=== PATIENT | female | born 1980 | race African-American/Black ===

== ENCOUNTER 2020-04-18 05:26 | Inpatient (IN) | payer OTHER, SELFPAY ==
[2020-04-18] MEDS ORDERED: ADENOSINE 6 MG/ 2ML VIAL IV ONE ×2 (06:01→06:05)
[2020-04-18] MEDS ORDERED: NA CHLORIDE 0.9% 1,000 ML ONE ×2 (06:02→12:15)
[2020-04-18] MEDS ORDERED: MIDAZOLAM HCL 2 MG/2 ML INJ ONE (06:04)
[2020-04-18] MEDS ORDERED: dilTIAZem HCL 25 MG/5 ML VIAL IV ONE ×2 (06:08→06:58)
[2020-04-18 06:09] LABS: Protime INR 1.04
[2020-04-18 06:17] LABS: Absolute Lymphocytes (CBC) 3.5 K/uL (0.7-4.9); Basophils % 1.4 % (0-1.3); Hematocrit 50.7 % (36.0-45.0); MPV 10.5 fL (7.6-11.3); RBC Red Blood Cell Count 6.28 M/uL (3.86-4.86)
[2020-04-18 06:23] LABS: ALT/SGPT 34 U/L (12-78); AST/SGOT 26 U/L (15-37); Alkaline Phosphatase 82 U/L (45-117); BUN Blood Urea Nitrogen 6 mg/dL (7-18); Bicarbonate 23 mmol/L (21-32); Bilirubin Direct 0.5 mg/dL (0-0.2); Glucose Level 104 mg/dL (74-106); Magnesium 2.1 mg/dL (1.8-2.4); NT PRO-BNP 990 pg/mL (<125); Potassium 4.1 mmol/L (3.5-5.1); Protein, Total 8.1 g/dL (6.4-8.2); Sodium Level 141 mmol/L (136-145); Troponin (Emerg Dept Use Only) < 0.02 ng/mL (0.0-0.045)
[2020-04-18 06:38] LABS: White Blood Cell Scan OK (OK)
[2020-04-18 06:39] LABS: Blood Morphology Comment NOT SEEN (NOT SEEN); Platelet Estimate ADEQ; Platelets, Giant FEW
--- NOTE | 2020-04-18 07:04 | EDPHYS ---
Physician Documentation [facility] Name: Carmel Gleason Age: 39 yrs Sex: Female : 1980 Arrival Date: 04/18/2020 Time: 05:26 Bed 4 Private MD: ED Physician Favio Cabrera HPI: 04/18 06:20 This 39 yrs old Black Female presents to ER via Ambulatory with complaints of Chest tw4 Pain. 06:20 The patient or guardian reports chest pain that is located primarily in the anterior tw4 chest wall. Associated signs and symptoms: The patient has no apparent associated signs or symptoms. The chest pain is described as dull. Duration: The patient or guardian reports a single episode. Modifying factors: The symptoms are alleviated by nothing. the symptoms are aggravated by nothing. The patient has not experienced similar symptoms in the past. 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 - Social history:: Smoking status: Patient reports the use of cigarette tobacco products, smokes one-half pack cigarettes per day, Patient uses alcohol, occasionally. Patient/guardian denies using street drugs. ROS: 07:03 Constitutional: Negative for fever, chills, and weight loss, Eyes: Negative for injury, tw4 pain, redness, and discharge, Neck: Negative for injury, pain, and swelling, Respiratory: Negative for shortness of breath, cough, wheezing, and pleuritic chest pain, Abdomen/GI: Negative for abdominal pain, nausea, vomiting, diarrhea, and constipation, Back: Negative for injury and pain, MS/Extremity: Negative for injury and deformity, Skin: Negative for injury, rash, and discoloration, Neuro: Negative for headache, weakness, numbness, tingling, and seizure. 07:03 Cardiovascular: Positive for chest pain, palpitations. Exam: 07:03 Constitutional: This is a well developed, well nourished patient who is awake, alert, tw4 and in no acute distress. Head/Face: Normocephalic, atraumatic. Chest/axilla: Normal chest wall appearance and motion. Nontender with no deformity. No lesions are appreciated. Cardiovascular: Regular rate and rhythm with a normal S1 and S2. No gallops, murmurs, or rubs. Normal PMI, no JVD. No pulse deficits. Respiratory: Lungs have equal breath sounds bilaterally, clear to auscultation and percussion. No rales, rhonchi or wheezes noted. No increased work of breathing, no retractions or nasal flaring. Abdomen/GI: Soft, non-tender, with normal bowel sounds. No distension or tympany. No guarding or rebound. No evidence of tenderness throughout. Back: No spinal tenderness. No costovertebral tenderness. Full range of motion. Skin: Warm, dry with normal turgor. Normal color with no rashes, no lesions, and no evidence of cellulitis. MS/ Extremity: Pulses equal, no cyanosis. Neurovascular intact. Full, normal range of motion. Vital Signs: 05:28 BP 114 / 97; Pulse 125; Resp 19; Temp 98.2; Pulse Ox 95% ; Weight 84.37 kg; Height 5 rr5 ft. 5 in. (165.10 cm); Pain 6/10; 05:40 Pulse 185; rr5 05:50 BP 121 / 98; Pulse 224; Resp 22; Pulse Ox 98% on R/A; rr5 06:03 BP 121 / 75; Pulse 119; Resp 20; Pulse Ox 96% on R/A; mg2 06:37 BP 132 / 74; Pulse 118; Resp 18; Pulse Ox 98% on 3 lpm NC; rr5 07:11 BP 115 / 81; Pulse 117; Resp 23; Pulse Ox 100% ; bp 08:00 BP 116 / 95; Pulse 115; Resp 20; Pulse Ox 100% on 3 lpm NC; tw2 08:50 BP 127 / 92; Pulse 117; Resp 18; Pulse Ox 99% on 3 lpm NC; tw2 09:50 BP 157 / 88; Pulse 102; Resp 33; Pulse Ox 97% ; bp 05:28 Body Mass Index 30.95 (84.37 kg, 165.10 cm) rr5 MDM: 05:42 Patient medically screened. tw4 07:03 Data reviewed: vital signs, nurses notes. Data interpreted: Pulse oximetry: tw4 Interpretation:. Counseling: I had a detailed discussion with the patient and/or guardian regarding: the historical points, exam findings, and any diagnostic results supporting the discharge/admit diagnosis, lab results, radiology results. Physician consultation: Minh Cardona MD regarding admission, patient's condition, and will see patient in ED. 04/18 05:57 Order name: Basic Metabolic Panel; Complete Time: 06:27 rr5 04/18 06:28 Interpretation: Normal except: CL 108; GFR 87; BUN 6. tw4 04/18 05:57 Order name: CBC with Diff; Complete Time: 06:56 rr5 04/18 06:56 Interpretation: Normal except: HCT 50.7; HGB 17.5; RBC 6.28; DANIELE% 41.5; BASO% 1.4; MN% tw4 17.7; MNA 1.8. 04/18 05:57 Order name: LFT's; Complete Time: 06:27 rr5 04/18 06:28 Interpretation: Normal except: GLOB 4.1; BILID 0.5; BILIT 2.0; A/G 1.0. tw04/18 05:57 Order name: Magnesium; Complete Time: 06:27 rr5 04/18 06:29 Interpretation: Within normal limits: MG 2.1. 04/18 05:57 Order name: NT PRO-BNP; Complete Time: 06:27 rr5 04/18 06:28 Interpretation: Within normal limits: NT PRO-BNP 990. 04/18 05:57 Order name: PT-INR; Complete Time: 06:27 rr5 04/18 06:29 Interpretation: Within normal limits: PT 12.3. 04/18 05:57 Order name: Troponin (emerg Dept Use Only); Complete Time: 06:27 rr5 04/18 06:29 Interpretation: Within normal limits: TROPED < 0.02. 04/18 06:39 Order name: CBC Smear Scan; Complete Time: 06:54 EDMS 04/18 06:55 Interpretation: Within normal limits: WBC SCAN OK. tw4 04/18 08:00 Order name: CBC with Automated Diff EDMS 04/18 08:00 Order name: CBC with Automated Diff EDMS 04/18 08:00 Order name: Lipid Profile EDMS 04/18 08:00 Order name: Lipid Profile EDMS 04/18 08:00 Order name: Troponin I EDWA 04/18 08:00 Order name: Troponin I EDWA 04/18 05:57 Order name: XRAY Chest (1 view) rr5 04/18 05:57 Order name: EKG; Complete Time: 05:58 rr5 04/18 07:57 Order name: Chest For Pe Angio EDWA 04/18 08:00 Order name: CONS Physician Consult EDWA 04/18 08:00 Order name: Heart Healthy EDWA 04/18 08:00 Order name: Echo with Doppler EDWA 04/18 08:00 Order name: Troponin I EDWA 04/18 08:00 Order name: T4 Free EDWA 04/18 08:01 Order name: Thyroid Stimulating Hormone EDWA 04/18 08:01 Order name: Urine Drug Screen EDWA 04/18 08:07 Order name: COVID-19 bd 04/18 05:57 Order name: Cardiac monitoring; Complete Time: 05:57 rr5 04/18 05:57 Order name: EKG - Nurse/Tech; Complete Time: 05:57 rr5 04/18 05:57 Order name: IV Saline Lock; Complete Time: 05:58 rr5 04/18 05:57 Order name: Labs collected and sent; Complete Time: 05:58 rr5 04/18 05:57 Order name: O2 Per Protocol; Complete Time: 05:58 rr5 04/18 05:57 Order name: O2 Sat Monitoring; Complete Time: 05:58 rr5 EC:03 Rate is 240 beats/min. Rhythm is regular. QRS [place] is Normal. AR interval is normal. tw4 QRS interval is normal. QT interval is normal. No Q waves. No ST changes noted. Clinical impression: SVT. Interpreted by me. Reviewed by me. Administered Medications: 05:48 Drug: Adenocard 6 mg Route: IVP; Site: left antecubital; rr5 06:23 Follow up: Response: No adverse reaction mg2 05:51 Drug: Adenocard 12 mg Route: IVP; Site: left antecubital; rr5 06:24 Follow up: Response: No adverse reaction mg2 05:55 Drug: NS 0.9% 1000 ml Route: IV; Rate: 1 bolus; Site: left antecubital; rr5 06:40 Follow up: Response: No adverse reaction; IV Status: Completed infusion; IV Intake: rr5 1000ml 05:55 Drug: Cardizem 20 mg Route: IVP; Site: left antecubital; rr5 06:24 Follow up: Response: No adverse reaction; patient converted mg2 06:48 Drug: Cardizem 5 mg Route: IVP; Site: left antecubital; mg2 Disposition: 04/18/20 07:03 Hospitalization ordered by Minh Cardona for Inpatient Admission. Preliminary diagnosis are Other chest pain, Supraventricular tachycardia, Unspecified atrial flutter. - Bed requested for Telemetry/MedSurg (Inpatient). - Status is Inpatient Admission. bp - Condition is Fair. - Problem is new. - Symptoms have improved. Signatures: Dispatcher [employer] EDMS Kathy Rosales RN MYRIAM kl Ron Frausto RN RN Riky Zimmerman RN RN bp Wadley, Terrence, MD MD 4 Guevara Darby RN RN mg2 Bill Llamas RN RN rr5 Corrections: (The following items were deleted from the chart) 06:30 06:28 Normal except: HCT 50.7; HGB 17.5; RBC 6.28. 06:56 06:30 Normal except: HCT 50.7; HGB 17.5; RBC 6.28; DANIELE% 41.5. [facility] 08:27 07:03 Hospitalization Ordered by Minh Cardona MD for Inpatient Admission. Preliminary kl diagnosis is Other chest pain; Supraventricular tachycardia; Unspecified atrial flutter. Bed requested for Telemetry/MedSurg (Inpatient). Status is Inpatient Admission. Condition is Fair. Problem is new. Symptoms have improved. [facility] 10:25 08:27 04/18/2020 07:03 Hospitalization Ordered by Minh Cardona MD for Inpatient bp Admission. Preliminary diagnosis is Other chest pain; Supraventricular tachycardia; Unspecified atrial flutter. Bed requested for Telemetry/MedSurg (Inpatient). Status is Inpatient Admission. Condition is Fair. Problem is new. Symptoms have improved. kl
--- NOTE | 2020-04-18 07:04 | ER ---
Nurse's Notes [facility] Name: Carmel Gleason Age: 39 yrs Sex: Female : 1980 Arrival Date: 04/18/2020 Time: 05:26 Bed 4 Private MD: Diagnosis: Other chest pain;Supraventricular tachycardia;Unspecified atrial flutter Presentation: 04/18 05:28 Chief complaint: Patient states: I woke up around 0330H having pain at the center of my rr5 chest going to my ear. 05:28 Coronavirus screen: Client denies travel out of the [place] in the last 14 days. At this rr5 time, the client does not indicate any symptoms associated with coronavirus-19. Ebola Screen: Patient negative for fever greater than or equal to 101.5 degrees Fahrenheit, and additional compatible Ebola Virus Disease symptoms Patient denies exposure to infectious person. Patient denies travel to an Ebola-affected area in the 21 days before illness onset. Initial Sepsis Screen: Does the patient meet any 2 criteria? HR > 90 bpm. No. Patient's initial sepsis screen is negative. Does the patient have a suspected source of infection? No. Patient's initial sepsis screen is negative. Risk Assessment: Do you want to hurt yourself or someone else? Patient reports no desire to harm self or others. Onset of symptoms was April 18, 2020. 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 - Social history:: Smoking status: Patient reports the use of cigarette tobacco products, smokes one-half pack cigarettes per day, Patient uses alcohol, occasionally. Patient/guardian denies using street drugs. Screenin:30 Abuse screen: Denies threats or abuse. Denies injuries from another. Nutritional rr5 screening: No deficits noted. Tuberculosis screening: No symptoms or risk factors identified. Fall Risk IV access (20 points). Total Patton Fall Scale indicates No Risk (0-24 pts). 06:03 Abuse screen: Denies threats or abuse. Denies injuries from another. Nutritional mg2 screening: No deficits noted. Tuberculosis screening: No symptoms or risk factors identified. Fall Risk IV access (20 points). Assessment: 05:30 General: Appears in no apparent distress. uncomfortable, Behavior is calm, cooperative, rr5 appropriate for age. 05:30 Pain: Complains of pain in chest Pain radiates to left ear Pain currently is 6 out of rr5 10 on a pain scale. Quality of pain is described as sharp, Pain began gradually, Is intermittent. Neuro: Level of Consciousness is awake, alert, obeys commands, Oriented to person, place, time, situation. Cardiovascular: Reports chest pain, Capillary refill < 3 seconds Patient's skin is warm and dry. Respiratory: Airway is patent Respiratory effort is even, unlabored, Respiratory pattern is regular, symmetrical, Denies shortness of breath. GI: No signs and/or symptoms were reported involving the gastrointestinal system. : No signs and/or symptoms were reported regarding the genitourinary system. EENT: Reports pain in left ear. Derm: Skin is intact, is healthy with good turgor, Skin temperature is warm. Musculoskeletal: Capillary refill < 3 seconds. 05:50 Reassessment: HR 224 bpm, ED provider at bedside with order made and carried out. rr5 06:05 Reassessment: Patient appears in no apparent distress at this time. Patient is alert, rr5 oriented x 3, equal unlabored respirations, skin warm/dry/pink. feels anxious as verbalized by the patient. explained the plan of care and she agreed to it, decreased environmental stimuli. 06:37 Reassessment: Patient appears in no apparent distress at this time. Patient is alert, rr5 oriented x 3, equal unlabored respirations, skin warm/dry/pink. Patient states feeling better. Patient states symptoms have improved. 07:00 Reassessment: Patient appears in no apparent distress at this time. Patient and/or bp family updated on plan of care and expected duration. Pain level reassessed. Patient is alert, oriented x 3, equal unlabored respirations, skin warm/dry/pink. RECD REPORT FROM HERBIE MIGUEL. 39YO BF P/W CHEST PAIN, SINUS TACH NOTED ON MONITOR ON ARRIVAL. 08:00 Reassessment: Patient appears in no apparent distress at this time. Patient and/or tw2 family updated on plan of care and expected duration. Pain level reassessed. Patient is alert, oriented x 3, equal unlabored respirations, skin warm/dry/pink. 08:50 Reassessment: Patient appears in no apparent distress at this time. Patient and/or tw2 family updated on plan of care and expected duration. Pain level reassessed. Patient is alert, oriented x 3, equal unlabored respirations, skin warm/dry/pink. 09:20 Reassessment: ECHO AT B/S. ADMIT IN PROCESS. bp 09:53 Reassessment: ADMIT COMPLETE. REPORT TO CAL MIGUEL. bp Vital Signs: 05:28 BP 114 / 97; Pulse 125; Resp 19; Temp 98.2; Pulse Ox 95% ; Weight 84.37 kg; Height 5 rr5 ft. 5 in. (165.10 cm); Pain 6/10; 05:40 Pulse 185; rr5 05:50 BP 121 / 98; Pulse 224; Resp 22; Pulse Ox 98% on R/A; rr5 06:03 BP 121 / 75; Pulse 119; Resp 20; Pulse Ox 96% on R/A; mg2 06:37 BP 132 / 74; Pulse 118; Resp 18; Pulse Ox 98% on 3 lpm NC; rr5 07:11 BP 115 / 81; Pulse 117; Resp 23; Pulse Ox 100% ; bp 08:00 BP 116 / 95; Pulse 115; Resp 20; Pulse Ox 100% on 3 lpm NC; tw2 08:50 BP 127 / 92; Pulse 117; Resp 18; Pulse Ox 99% on 3 lpm NC; tw2 09:50 BP 157 / 88; Pulse 102; Resp 33; Pulse Ox 97% ; bp 05:28 Body Mass Index 30.95 (84.37 kg, 165.10 cm) rr5 ED Course: 05:15 Inserted saline lock: 20 gauge in left antecubital area, using aseptic technique. Blood rr5 collected. 05:15 EKG done, by ED staff, reviewed by Favio Cabrera MD. rr5 05:26 Patient arrived in ED. cl3 05:30 Patient has correct armband on for positive identification. Placed in gown. Bed in low rr5 position. Call light in reach. Side rails up X2. property assessment monitor on. Pulse ox on. NIBP on. 05:35 Arm band placed on right wrist. EKG completed in triage. Results shown to MD. rr5 05:41 Favio Cabrera MD is Attending Physician. tw4 05:45 Oxygen administration via nasal cannula \T\ 3L/min. rr5 05:57 Herbie Llamas, RN is Primary Nurse. rr5 06:00 Triage completed. rr5 06:14 XRAY Chest (1 view) In Process Unspecified. EDMS 07:03 Minh Cardona MD is Hospitalizing Provider. tw4 07:06 Primary Nurse role handed off by Herbie Llamas, RN bp 07:06 Riky Zimmerman, RN is Primary Nurse. bp 08:[address] via stretcher. sj 09:54 No provider procedures requiring assistance completed. Patient admitted, IV remains in bp place. Administered Medications: 05:48 Drug: Adenocard 6 mg Route: IVP; Site: left antecubital; rr5 06:23 Follow up: Response: No adverse reaction mg2 05:51 Drug: Adenocard 12 mg Route: IVP; Site: left antecubital; rr5 06:24 Follow up: Response: No adverse reaction mg2 05:55 Drug: NS 0.9% 1000 ml Route: IV; Rate: 1 bolus; Site: left antecubital; rr5 06:40 Follow up: Response: No adverse reaction; IV Status: Completed infusion; IV Intake: rr5 1000ml 05:55 Drug: Cardizem 20 mg Route: IVP; Site: left antecubital; rr5 06:24 Follow up: Response: No adverse reaction; patient converted mg2 06:48 Drug: Cardizem 5 mg Route: IVP; Site: left antecubital; mg2 Intake: 06:40 IV: 1000ml; Total: 1000ml. rr5 Outcome: 07:03 Decision to Hospitalize by Provider. tw4 09:55 Admitted to Med/surg accompanied by tech, family with patient, via wheelchair, with bp oxygen, Report called to ACL MIGUEL 09:55 Condition: stable 09:55 Instructed on the need for admit. 10:25 Patient left the ED. bp Signatures: Dispatcher [employer] EDIN Maude Wall Lucy Escobedo RN RN tw2 Riky Zimmerman, RN RN bp Favio Cabrera MD MD tw4 Guevara Darby RN RN mg2 Herbie Llamas RN RN rr5 Kenyetta Rosales cl3 Corrections: (The following items were deleted from the chart) 07:07 06:37 BP 132 / 74; Pulse 118bpm; Resp 18bpm; Pulse Ox 98%; rr5 rr5
[2020-04-18] MEDS ORDERED: MORPHINE 4 MG/ML SYR IV PRN (07:55)
[2020-04-18] MEDS ORDERED: ACETAMINOPHEN 500 MG TAB PO PRN (07:55)
--- NOTE | 2020-04-18 08:32 | RAD REPORT ---
EXAM DESCRIPTION: CT - Chest For Pe Angio - 04/18/2020 8:10 am CLINICAL HISTORY: Chest pain. tachyarryhthmia COMPARISON: No comparisons TECHNIQUE: CT angiogram of the pulmonary arteries was performed with MIP. All CT scans are performed using dose optimization technique as appropriate and may include automated exposure control or mA/KV adjustment according to patient size. FINDINGS: No evidence of pulmonary thromboembolism. No acute aortic finding demonstrated. Scattered areas of subsegmental atelectasis are present in both lungs. No significant pericardial or pleural fluid. No concerning bony finding. IMPRESSION: No evidence of pulmonary thromboembolism.
--- NOTE | 2020-04-18 08:43 | RAD REPORT ---
EXAM DESCRIPTION: RAD - Chest Single View - 04/18/2020 6:14 am CLINICAL HISTORY: CHEST PAIN Chest pain. COMPARISON: No comparisons FINDINGS: Portable technique limits examination quality. The lungs are grossly clear. The heart is upper limit of normal in size. No displaced fractures. IMPRESSION: No acute intrathoracic process suspected.
[2020-04-18] MEDS ORDERED: METOPROLOL TAR 50 MG TAB PO SCH (09:00)
[2020-04-18] MEDS ORDERED: ASPIRIN EC 81 MG TAB PO SCH (09:00)
[2020-04-18 10:49] VITALS: BMI 29.7
[2020-04-18] MEDS: ENOXAPARIN 40 MG/0.4 ML SQ SCH (11:22)
[2020-04-18] MEDS: METOPROLOL TARTRATE 5 MG/5 ML INJ IV SCH ×2 (11:57→12:18)
[2020-04-18] MEDS ORDERED: NA CHLORIDE 0.9% 1,000 ML IV ONE (11:58)
[2020-04-18] MEDS ORDERED: METOPROLOL TARTRATE 5 MG/5 ML INJ IV ONE (12:15)
[2020-04-18 13:04] LABS: Thyroid Stimulating Hormone 0.616 uIU/mL (0.360-3.740); Troponin I < 0.02 ng/mL (0.0-0.045)
[2020-04-18] MEDS: NA CHLORIDE 0.9% 1,000 ML IV SCH (16:20)
[2020-04-18] MEDS: METOPROLOL TAR 25 MG TAB PO SCH (17:27)
--- NOTE | 2020-04-18 19:14 | EKG ---
Test Date: 2020-04-18 Test Time: 05:56:08 Alumina Plant Supervisor: RR MEASUREMENT RESULTS: Intervals: Rate: 120 RI: QRSD: 72 QT: 312 QTc: 440 [place]: P: 258 RI: QRS: 68 T: -54 INTERPRETIVE STATEMENTS: Atrial flutter with 2:1 AV conduction RSR' or QR pattern in V1 suggests right ventricular conduction delay Marked ST abnormality, possible inferior subendocardial injury Abnormal ECG Compared to ECG 04/18/2020 05:50:57 RSR' in V1 or V2 now present ST (T wave) deviation now present Wide-QRS tachycardia no longer present Left-axis deviation no longer present Right bundle-branch block no longer present Myocardial infarct finding no longer present T-wave abnormality no longer present Possible ischemia no longer present Electronically Signed On 04-18-20 19:12:41 SLAB PULLER by Moses Cho
--- NOTE | 2020-04-18 19:14 | EKG ---
Test Date: 2020-04-18 Test Time: 05:41:33 Pretzel Cooker: RR MEASUREMENT RESULTS: Intervals: Rate: 239 RI: QRSD: 128 QT: 230 QTc: 458 [place]: P: RI: QRS: -62 T: 258 INTERPRETIVE STATEMENTS: Wide QRS tachycardia Right bundle branch block Left anterior fascicular block Bifascicular block Possible Lateral infarct, age undetermined Inferior infarct, age undetermined Abnormal ECG Compared to ECG 04/18/2020 05:37:56 Wide-QRS tachycardia now present Right bundle-branch block now present Left anterior fascicular block now present Bifascicular block now present Myocardial infarct finding now present ST (T wave) deviation no longer present Electronically Signed On 04-18-20 19:12:43 SYBASE DEVELOPER by Moses Cho
--- NOTE | 2020-04-18 19:14 | EKG ---
Test Date: 2020-04-18 Test Time: 05:37:56 Certified Caregiver: RR MEASUREMENT RESULTS: Intervals: Rate: 160 FL: 126 QRSD: 70 QT: 276 QTc: 450 [place]: P: 261 FL: 126 QRS: 69 T: -71 INTERPRETIVE STATEMENTS: Undetermined rhythm Marked ST abnormality, possible inferior subendocardial injury Abnormal ECG Compared to ECG 07/07/2008 08:20:08 ST (T wave) deviation now present Sinus rhythm no longer present Electronically Signed On 04-18-20 19:12:44 LIBRARY CIRCULATION CLERK by Moses Cho
--- NOTE | 2020-04-18 19:14 | EKG ---
Test Date: 2020-04-18 Test Time: 05:50:57 Quality Control Associate: RR MEASUREMENT RESULTS: Intervals: Rate: 241 [place]: QRSD: 132 QT: 234 QTc: 468 [place]: P: TX: QRS: -59 T: 252 INTERPRETIVE STATEMENTS: Wide QRS tachycardia Left axis deviation Right bundle branch block Inferior infarct, age undetermined T wave abnormality, consider lateral ischemia Abnormal ECG Compared to ECG 04/18/2020 05:46:10 Left-axis deviation now present T-wave abnormality now present Possible ischemia now present Left anterior fascicular block no longer present Bifascicular block no longer present Wide-QRS tachycardia still present Myocardial infarct finding still present Electronically Signed On 04-18-20 19:12:42 BASS FISHER by Moses Cho
--- NOTE | 2020-04-18 19:14 | EKG ---
Test Date: 2020-04-18 Test Time: 05:46:10 Dry Cans Back Tender: RR MEASUREMENT RESULTS: Intervals: Rate: 240 TX: QRSD: 130 QT: 232 QTc: 464 [place]: P: TX: QRS: -62 T: 251 INTERPRETIVE STATEMENTS: Wide QRS tachycardia Right bundle branch block Left anterior fascicular block Bifascicular block Possible Lateral infarct, age undetermined Inferior infarct, age undetermined Abnormal ECG Compared to ECG 04/18/2020 05:41:33 No significant changes Electronically Signed On 04-18-20 19:12:42 INFORMATION TECHNOLOGY PROJECT MANAGER by Moses Cho
[2020-04-18] MEDS: ALPRAZOLAM 0.25 MG TABLET PO PRN (20:02)
[2020-04-19 04:31] LABS: Absolute Lymphocytes (CBC) 1.9 K/uL (0.7-4.9); Basophils % 0.6 % (0-1.3); Hematocrit 43.7 % (36.0-45.0); MPV 10.2 fL (7.6-11.3); RBC Red Blood Cell Count 5.43 M/uL (3.86-4.86)
[2020-04-19] MEDS: NA CHLORIDE 0.9% 1,000 ML IV SCH ×2 (05:41→20:40)
[2020-04-19] MEDS: METOPROLOL TAR 25 MG TAB PO SCH ×2 (05:41→17:20)
[2020-04-19 05:49] LABS: Barbiturates NEGATIVE (NEGATIVE); Benzodiazepines NEGATIVE (NEGATIVE); Cocaine NEGATIVE (NEGATIVE); METHAMPHETAM NEGATIVE (NEGATIVE); Methadone NEGATIVE (NEGATIVE); Opiates NEGATIVE (NEGATIVE); Phencyclidine NEGATIVE (NEGATIVE); THC Cannibis POSITIVE (NEGATIVE)
--- NOTE | 2020-04-19 07:42 | ECHO ---
HEIGHT: 5 ft 5 in WEIGHT: 178 lb 4.8 oz DATE OF STUDY: 04/18/[address]: Minh Cardona MD 2-DIMENSIONAL: YES M.MODE: YES DOPPLER: YES COLOR FLOW: YES TDS: PORTABLE: DEFINITY: BUBBLE STUDY: DIAGNOSIS: TACHYCARDIA CARDIAC HISTORY: CATHERIZATION: NO SURGERY: NO PROSTHETIC VALVE: NO PACEMAKER: NO MEASUREMENTS (cm) DIASTOLIC (NORMALS) SYSTOLIC (NORMALS) IVSd 0.9 (0.6-1.2) LA Diam 2.9 (1.9-4.0) LVEF 62% LVIDd 3.6 (3.5-5.7) LVIDs 2.4 (2.0-3.5) %FS 33% LVPWd 1.0 (0.6-1.2) Ao Diam 2.3 (2.0-3.7) 2 DIMENSIONAL ASSESSMENT: RIGHT ATRIUM: NORMAL LEFT ATRIUM: NORMAL RIGHT VENTRICLE: NORMAL LEFT VENTRICLE: NORMAL TRICUSPID VALVE: NORMAL MITRAL VALVE: NORMAL PULMONIC VALVE: NORMAL AORTIC VALVE: NORMAL PERICARDIAL EFFUSION: NONE AORTIC ROOT: NORMAL LEFT VENTRICULAR WALL MOTION: PARADOXICAL SEPTUM DOPPLER/COLOR FLOW: MILD TRICUSPID REGURGITATION. COMMENTS: MILD TRICUSPID REGURGITATION. NORMAL RIGHT VENTRICULAR SYSTOLIC PRESSURE. PARADOXICAL SEPTUM. NO EFFUSION. NORMAL EJECTION FRACTION. TECHNOLOGIST: RODOLFO PISANO
[2020-04-19] MEDS: ASPIRIN 81 MG CHEWABLE TABLET PO SCH (09:13)
[2020-04-19] MEDS: ENOXAPARIN 40 MG/0.4 ML SQ SCH (09:13)
--- NOTE | 2020-04-19 10:04 | P.HP ---
Certification for Inpatient Patient admitted to: Inpatient With expected LOS: >2 Midnights Patient will require the following post-hospital care: None Practitioner: I am a practitioner with admitting privileges, knowledge of patient current condition, hospital course, and medical plan of care. Services: Services provided to patient in accordance with Admission requirements found in Title 42 Section 412.3 of the Code of Federal Regulations Patient History Date of Service: 04/18/20 Reason for admission: Tachyarrhythmia History of Present Illness: Patient is a 39-year-old female came to the hospital with tachyarrhythmia. She has not been feeling well for the last few days. Her symptoms gradually worsen so she came to the emergency room for further evaluation. In the ER she was found have a heart rate in the 160s. She was given intravenous Cardizem. Her heart rate came down but it was only coming down to the 110s. She has had house with her heart rate gets back up into the 160s whenever she moves around. She has never had an issue of tachyarrhythmia. She has no cardiac history. She denies drinking energy drinks. She has not had any thyroid issues. She denies any substance abuse. She will be admitted to the hospital for further evaluation. 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 moist/pink, EOMI, Sclerae nonicteric Neck: Supple, 2+ carotid pulse no bruit, No LAD, Without JVD or thyroid abnormality Respiratory: Clear to auscultation bilaterally, Normal air movement Cardiovascular: Regular rate/rhythm, Normal S1 S2, No murmurs Gastrointestinal: Normal bowel sounds, Soft and benign, Non-distended, No tenderness, No rebound, No guarding Musculoskeletal: No clubbing, No swelling, No tenderness Integumentary: No rashes Neurological: Normal gait, Normal speech, Normal strength at 5/5 x4 extr, Normal tone, Sensation intact, Cranial nerves 3-12 intact, Normal affect Lymphatics: No axilla or inguinal lymphadenopathy - Studies Laboratory Data (last 24 hrs) 04/18/20 12:26: Troponin I < 0.02 Assessment & Plan - Problems (Diagnosis) (1) Tachyarrhythmia Current Visit: Yes Status: Acute - Plan PLAN: 1. START BETA-JANICE 2. IV HYDRATION 3. CARDIOLOGY CONSULTATION 4. ECHOCARDIOGRAM 5. CHECK THYROID STUDIES 6. DRUG SCREEN 7. GI AND DVT PROPHYLAX IS Discharge Plan: Home Plan to discharge in: Greater than 2 days - Advance Directives Does patient have a Living Will: No Does patient have a Durable POA for Healthcare: No Critical Care: No Time Spent Managing PTS Care (In Minutes): 45
[2020-04-19] MEDS ORDERED: NIFEDIPINE XL 30 MG TABLET PO ONE (10:55)
--- NOTE | 2020-04-19 17:24 | CON ---
Date of Consultation: 04/19/2020 Reason For Consultation: Tachycardia and chest pain. History Of Present Illness: This is a 39-year-old female, who presents to the emergency room because of chest discomfort and heart racing. Has been having this feeling for some time and worsened at th e time of presentation. In the ER, she was found to have us to narrow complex tachycardia, heart rat e of 160, responded very well to Cardizem. Does not have any further chest pain. She has some chest pain with the episode. Past Medical History: None. Medications: Aspirin. Allergies: NO KNOWN DRUG ALLERGIES. Family History: No premature coronary artery disease or cancer. Social History: She does not smoke or drink. Does not use any drugs. Review of Systems: All systems were reviewed and they were negative except what mentioned in the HPI. Physical Examination: Vital Signs: Temperature is 97.7, heart rate 114, breathing 18, blood pressure 123/71, saturating 95 %. General: Pleasant young female, in no distress. Head and Neck: Pupils are equal, reactive to light. Intact eye movements. No JVD. No cervical lym phadenopathy. Neck: Supple. Thyroid is not enlarged. Lungs: Clear to auscultation bilaterally. No rhonchi, rales, or crackles. No accessory muscle use. Heart: Regular rate and rhythm. No extra sounds. Abdomen: Soft, nontender. Bowel sounds positive. No organomegaly. No masses or hernia. No rigidi ty or rebound. Extremities: No edema, clubbing, or cyanosis. Intact pulses. Skin: No rash noted. Neurologic: Alert, awake, oriented x3. No acute focal deficits appreciated. Investigations: Troponin x3 are negative. NT-proBNP is 990. Hemoglobin is 17.5 with white blood ce ll count of 4.6. Assessment And Plan: 1.Narrow complex tachycardia, could be supraventricular tachycardia. Her heart rate is slowed then now. We will obtain official EKG to further determine the rhythm. Agree with beta-ayde and obtai n an echocardiogram. 2.Chest pain, borderline with elevated NT-proBNP. Please obtain an exercise nuclear stress test to further evaluate. Thank you for consultation. /TANYA Voice ID: [id number] Report ID: [id number]
[2020-04-19] MEDS: ALPRAZOLAM 0.25 MG TABLET PO PRN (20:40)
[2020-04-20] MEDS: METOPROLOL TAR 25 MG TAB PO SCH (06:00)
--- NOTE | 2020-04-20 09:43 | P.DS ---
Disposition: ROUTINE DISCHARGE Discharge Condition: GOOD Reason for Admission: Tachyarrhythmia - Problems (1) Tachyarrhythmia Current Visit: Yes Status: Acute Brief History of Present Illness: Patient is a 39-year-old female came to the hospital with tachyarrhythmia. She has not been feeling well for the last few days. Her symptoms gradually worsen so she came to the emergency room for further evaluation. In the ER she was found have a heart rate in the 160s. She was given intravenous Cardizem. Her heart rate came down but it was only coming down to the 110s. She has had house with her heart rate gets back up into the 160s whenever she moves around. She has never had an issue of tachyarrhythmia. She has no cardiac history. She denies drinking energy drinks. She has not had any thyroid issues. She denies any substance abuse. She will be admitted to the hospital for further evaluation. Vital Signs/Physical Exam: Temp Pulse Resp BP Pulse Ox 98.5 F 118 H 16 121/73 98 04/20/20 09:42 04/20/20 09:42 04/20/20 09:42 04/20/20 09:42 04/20/20 09:42 Laboratory Data at Discharge: WBC 12.6 K/uL (4.3-10.9) H D 04/19/20 04:04 Hgb 15.0 g/dL (12.0-15.0) D 04/19/20 04:04 Hct 43.7 % (36.0-45.0) 04/19/20 04:04 Plt Count 237 K/uL (152-406) D 04/19/20 04:04 PT 12.3 SECONDS (9.5-12.5) 04/18/20 05:55 INR 1.04 04/18/20 05:55 Sodium 141 mmol/L (136-145) 04/18/20 05:55 Potassium 4.1 mmol/L (3.5-5.1) 04/18/20 05:55 BUN 6 mg/dL (7-18) L 04/18/20 05:55 Creatinine 0.88 mg/dL (0.55-1.3) 04/18/20 05:55 Glucose 104 mg/dL (74-106) 04/18/20 05:55 Magnesium 2.1 mg/dL (1.8-2.4) 04/18/20 05:55 Total Bilirubin 2.0 mg/dL (0.2-1.0) H 04/18/20 05:55 AST 26 U/L (15-37) 04/18/20 05:55 ALT 34 U/L (12-78) 04/18/20 05:55 Alkaline Phosphatase 82 U/L (45-117) 04/18/20 05:55 Troponin I < 0.02 ng/mL (0.0-0.045) 04/19/20 00:51 Triglycerides 104 mg/dL (<150) 04/18/20 05:55 Cholesterol 177 mg/dL (<200) 04/18/20 05:55 HDL Cholesterol 62 mg/dL (40-60) H 04/18/20 05:55 Cholesterol/HDL Ratio 2.85 04/18/20 05:55 Home Medications: Aspirin Chewable [Aspirin Chewable*] 162 mg PO DAILY 04/18/20 ALPRAZolam [Xanax*] 0.25 mg PO TID PRN #20 tab 04/20/20 Metoprolol Tartrate [Lopressor] 100 mg PO BID #60 tablet 04/20/20 New Medications: Metoprolol Tartrate [Lopressor] 100 mg PO BID #60 tablet ALPRAZolam [Xanax*] 0.25 mg PO TID PRN #20 tab PRN Reason: Anxiety Patient Discharge Instructions: OK TO DC IV AND DC HOME IF STRESS TEST IS NEGATIVE. FOLLOW-UP WITH PRIMARY CARE PROVIDER IN 1-2 WEEKS. FOLLOW-UP WITH CARDIOLOGY IN 1-2 WEEKS. RETURN TO THE ER IF SYMPTOMS WORSEN. CALL or TEXT DR. SERRANO AT [phone] IF ANY QUESTIONS REGARDING HOSPITAL STAY. PLEASE CALL THE FLOOR AT [phone] IF ANY MEDICATION OR NURSING QUESTIONS. Diet: AHA Activity: Fall precautions Followup: Moses Cho MD [ACTIVE - CAN ADMIT] - (Call to make an appointment. )
--- NOTE | 2020-04-20 09:43 | P.PN ---
Subjective Date of Service: 04/19/20 Still having Tachyarrhythmia; increased lopressor dosing; cardiology wants to do stress Review of Systems 10-point ROS is otherwise unremarkable Physical Examination - Vital Signs Temperature: 98.5 F Blood Pressure: 121/73 Pulse: 118 Respirations: 16 Pulse Ox (%): 98 - Physical Exam General: Alert, In no apparent distress, Oriented x3 HEENT: Atraumatic, PERRLA, EOMI Neck: Supple, JVD not distended Respiratory: Clear to auscultation bilaterally, Normal air movement Cardiovascular: Regular rate/rhythm, Normal S1 S2 Gastrointestinal: Normal bowel sounds, No tenderness Musculoskeletal: No tenderness Integumentary: No rashes Neurological: Normal speech, Normal tone, Normal affect Lymphatics: No axilla or inguinal lymphadenopathy - Studies Medications List Reviewed: Yes Assessment & Plan - Problems (Diagnosis) (1) Tachyarrhythmia Current Visit: Yes Status: Acute - Plan PLAN: 1. CONT BETA-JANICE 2. IV HYDRATION 3. CARDIOLOGY CONSULTATION APPRECIATED 4. ECHOCARDIOGRAM NL; STRESS TEST PENDING 5. THYROID STUDIES NORMAL 6. DRUG SCREEN NEGATIVE 7. GI AND DVT PROPHYLAXIS Discharge Plan: Home Plan to discharge in: Greater than 2 days - Advance Directives Does patient have a Living Will: No Does patient have a Durable POA for Healthcare: No
[2020-04-20] MEDS ORDERED: NIFEDIPINE XL 30 MG TABLET PO ONE (10:15)
[2020-04-20] MEDS: ENOXAPARIN 40 MG/0.4 ML SQ SCH (10:46)
[2020-04-20] MEDS: ASPIRIN 81 MG CHEWABLE TABLET PO SCH (10:46)
[2020-04-20] MEDS: NA CHLORIDE 0.9% 1,000 ML IV SCH ×2 (12:15→20:48)
[2020-04-20] MEDS: ADENOSINE 6 MG/ 2ML VIAL IV PRN ×2 (13:09→13:19)
[2020-04-20] MEDS ORDERED: SOTALOL HCL 80 MG TAB PO ONE (14:25)
[2020-04-20] MEDS ORDERED: METOPROLOL TAR 50 MG TAB PO SCH (18:00)
[2020-04-20] MEDS ORDERED: SOTALOL HCL 80 MG TAB PO SCH (18:00)
[2020-04-20] MEDS: SOTALOL HCL 80 MG TAB PO SCH (18:32)
[2020-04-20] MEDS: APIXABAN 5 MG TABLET PO SCH (20:49)
[2020-04-21] MEDS: ALPRAZOLAM 0.25 MG TABLET PO PRN (03:31)
--- NOTE | 2020-04-21 04:08 | PN ---
Date of Progress Note: 04/20/2020 Ms. Gleason was actually seen by Dr. Cedillo, my partner, for tachycardia, atypical chest pain. Stress test was being done yesterday in which she had runs of what appeared to be ventricular tachycardia v ersus atrial flutter with aberrancy. The stress test was canceled. I recommended we start Betapace 80 mg 1 p.o. b.i.d. because really her initial EKG actually shows atrial flutter with 2:1 conduction. We will keep her on Eliquis as well. I will discontinue her metoprolol. We will continue to follo w her. She should receive at least 3 dosages of sotalol before she goes home. Once she is in normal rhythm, eventually, we can certainly repeat her stress test then. Echocardiogram that was done reve aled a paradoxical septum with a normal ejection fraction of 62%. HEIKE/TANYA Voice ID: [id number] Report ID: [id number]
[2020-04-21 05:36] VITALS: O2SAT 98
[2020-04-21] MEDS: SOTALOL HCL 80 MG TAB PO SCH ×2 (05:36→15:06)
--- NOTE | 2020-04-21 06:44 | P.PN ---
Subjective Date of Service: 04/20/20 Patient was seen by Cardiology, Dr. Cho. [place] like EKG was atrial flutter. We gave patient a little bit of adenosine and we were able to see the flutter waves clearly. Dr. Cho had recommended sotalol along with Eliquis. We will continue anticoagulation and hopefully the sotalol corrects patient's atrial flutter. If not patient will need to follow up as an outpatient for electrical cardioversion in 1 months. Review of Systems 10-point ROS is otherwise unremarkable Physical Examination - Vital Signs Temperature: 98.5 F Blood Pressure: 121/73 Pulse: 118 Respirations: 16 Pulse Ox (%): 98 - Physical Exam General: Alert, In no apparent distress, Oriented x3 Respiratory: Clear to auscultation bilaterally, Normal air movement Cardiovascular: Irregular heart rate/rhythm, Systolic murmur Gastrointestinal: Normal bowel sounds, Soft and benign, Non-distended, No tenderness Musculoskeletal: No clubbing, No swelling, No tenderness Integumentary: No rashes Neurological: Normal speech, Normal tone, Normal affect Lymphatics: No axilla or inguinal lymphadenopathy - Studies Medications List Reviewed: Yes Assessment & Plan - Problems (Diagnosis) (1) Atrial flutter with rapid ventricular response Current Visit: Yes Status: Acute - Plan PLAN: 1. START SOTALOL 2. IV HYDRATION 3. CARDIOLOGY CONSULTATION APPRECIATED 4. ECHOCARDIOGRAM NL; WILL SCHEDULE OUTPATIENT STRESS TEST 5. THYROID STUDIES NORMAL 6. DRUG SCREEN NEGATIVE 7. GI AND DVT PROPHYLAXIS Discharge Plan: Home Plan to discharge in: Greater than 2 days - Advance Directives Does patient have a Living Will: No Does patient have a Durable POA for Healthcare: No - Code Status/Comfort Care Code Status Assessed: Yes Code Status: Full Code Critical Care: No Time Spent Managing PTS Care (In Minutes): 40
[2020-04-21] MEDS: ASPIRIN 81 MG CHEWABLE TABLET PO SCH (10:02)
[2020-04-21] MEDS: APIXABAN 5 MG TABLET PO SCH (10:02)
[2020-04-21] MEDS: NA CHLORIDE 0.9% 1,000 ML IV SCH (10:40)
--- NOTE | 2020-04-21 10:50 | P.PN ---
Subjective Date of Service: 04/21/20 Chief Complaint: Tachyarrhythmia Subjective: No new changes, No C/O voiced Review of Systems 10-point ROS is otherwise unremarkable Physical Examination - Vital Signs Temperature: 97.6 F Blood Pressure: 122/74 Pulse: 112 Respirations: 16 Pulse Ox (%): 98 - Physical Exam General: Alert, In no apparent distress HEENT: Atraumatic, Normocephalic Neck: Supple Respiratory: Clear to auscultation bilaterally, Normal air movement Cardiovascular: Regular rate/rhythm, Normal S1 S2 Capillary refill: <2 Seconds Gastrointestinal: Soft and benign, Non-distended, W/out hepatosplenomegaly Musculoskeletal: No clubbing, No swelling Integumentary: No rashes, No breakdown Neurological: Normal speech, Normal strength at 5/5 x4 extr Lymphatics: No axilla or inguinal lymphadenopathy - Studies Medications List Reviewed: Yes Assessment & Plan - Problems (Diagnosis) (1) Atrial flutter with rapid ventricular response Current Visit: Yes Status: Acute (2) Tachyarrhythmia Current Visit: Yes Status: Acute Physician Review Additional Text: Monitor under telemetry No further episodes of tachyarrhythmias Appreciate help from cardiology Started on sotalol Echocardiogram findings noted with normal EF and paradoxical septal moments Thyroid panel normal Cardiology recommended outpatient stress test once tachyarrhythmia resolved Wanted to keep the patient on sotalol under close telemetry monitoring for 3 days Possible Dc in 2 days time Needs outpatient follow up with Cardiology and outpatient stress test Discussed in detail with the patient Time Spent Managing Pts Care (In Minutes): 42
[2020-04-21] MEDS: METOPROLOL TARTRATE 5 MG/5 ML INJ IV SCH ×3 (14:28→15:03)
--- NOTE | 2020-04-21 15:05 | PN ---
Date of Progress Note: 04/21/2020 Subjective: Ms. Gleason was started yesterday on Betapace 80 mg 1 p.o. b.i.d. for atrial flutter with rapid ventricular response today. She is also on Xarelto. She remained in atrial flutter, rate 110 without any symptoms. I suggested x3 dosages total to lower her heart rate more. She is tolerating sotalol without any QT prolongation. She should go home on sotalol 80 mg b.i.d. and anti coagulant either Eliquis or Xarelto, depending with Dr. Cardona. Once she has had an echocardiogram dean t was normal, we will plan to see her in the office soon and if she stays in atrial flutter over the next few days, we will plan a direct current cardioversion. This was discussed with Ms. Gleason in de tail. HEIKE/TANYA Voice ID: [id number] Report ID: [id number]
--- NOTE | 2020-04-21 15:28 | P.DS ---
Admission Date: 04/18/20 Discharge Date: 04/21/20 Disposition: ROUTINE DISCHARGE Discharge Condition: GOOD Reason for Admission: Tachyarrhythmia - Problems (1) Atrial flutter with rapid ventricular response Current Visit: Yes Status: Acute (2) Tachyarrhythmia Current Visit: Yes Status: Acute Brief History of Present Illness: 39-year-old female came to the hospital with tachyarrhythmia. She has not been feeling well for the last few days. Her symptoms gradually worsen so she came to the emergency room for further evaluation. In the ER she was found have a heart rate in the 160s. She was given intravenous Cardizem. Her heart rate came down but it was only coming down to the 110s. She has had house with her heart rate gets back up into the 160s whenever she moves around. She has never had an issue of tachyarrhythmia. She has no cardiac history. She denies drinking energy drinks. She has not had any thyroid issues. She denies any substance abuse. She will be admitted to the hospital for further evaluation. Hospital Course: The patient was admitted and was monitored closely under telemetry. Patient was initially started on beta-ayde. Echocardiogram was done which showed normal EF . Cardiology was consulted in view of the atrial flutter with tachy arrhythmia patient was started on sotalol along with anticoagulation Echocardiogram findings noted with normal EF and paradoxical septal moments Thyroid panel normal Cardiology recommended outpatient stress test once tachyarrhythmia resolved Wanted to keep the patient on sotalol under close telemetry monitoring Needs outpatient follow up with Cardiology and outpatient stress test Discussed in detail with the patient patient wanted go home and is being discharged home today in a stable condition with advice to follow up with enterprise business architect in 1-2 weeks and along with PCP in 1-2 weeks Vital Signs/Physical Exam: Temp Pulse Resp BP Pulse Ox 97.6 F 112 H 18 124/85 98 04/21/20 12:26 04/21/20 15:03 04/21/20 15:01 04/21/20 15:03 04/21/20 15:01 General: Alert, In no apparent distress HEENT: Atraumatic, Normocephalic Neck: Supple Respiratory: Clear to auscultation bilaterally Cardiovascular: No edema, Other (Tachycardia ) Capillary refill: <2 Seconds Gastrointestinal: Soft and benign, Non-distended Musculoskeletal: No clubbing, No swelling Integumentary: No rashes, No breakdown Neurological: Normal gait, Normal speech Lymphatics: No axilla or inguinal lymphadenopathy Laboratory Data at Discharge: WBC 12.6 K/uL (4.3-10.9) H D 04/19/20 04:04 Hgb 15.0 g/dL (12.0-15.0) D 04/19/20 04:04 Hct 43.7 % (36.0-45.0) 04/19/20 04:04 Plt Count 237 K/uL (152-406) D 04/19/20 04:04 PT 12.3 SECONDS (9.5-12.5) 04/18/20 05:55 INR 1.04 04/18/20 05:55 Sodium 141 mmol/L (136-145) 04/18/20 05:55 Potassium 4.1 mmol/L (3.5-5.1) 04/18/20 05:55 BUN 6 mg/dL (7-18) L 04/18/20 05:55 Creatinine 0.88 mg/dL (0.55-1.3) 04/18/20 05:55 Glucose 104 mg/dL (74-106) 04/18/20 05:55 Magnesium 2.1 mg/dL (1.8-2.4) 04/18/20 05:55 Total Bilirubin 2.0 mg/dL (0.2-1.0) H 04/18/20 05:55 AST 26 U/L (15-37) 04/18/20 05:55 ALT 34 U/L (12-78) 04/18/20 05:55 Alkaline Phosphatase 82 U/L (45-117) 04/18/20 05:55 Troponin I < 0.02 ng/mL (0.0-0.045) 04/19/20 00:51 Triglycerides 104 mg/dL (<150) 04/18/20 05:55 Cholesterol 177 mg/dL (<200) 04/18/20 05:55 HDL Cholesterol 62 mg/dL (40-60) H 04/18/20 05:55 Cholesterol/HDL Ratio 2.85 04/18/20 05:55 Home Medications: Aspirin Chewable [Aspirin Chewable*] 162 mg PO DAILY 04/18/20 Apixaban [Eliquis] 5 mg PO BID #60 tablet 04/21/20 Sotalol HCl [Betapace*] 80 mg PO BID #60 tab 04/21/20 New Medications: Sotalol HCl [Betapace*] 80 mg PO BID #60 tab Apixaban [Eliquis] 5 mg PO BID #60 tablet Patient Discharge Instructions: OK TO DC IV AND DC HOME IF STRESS TEST IS NEGATIVE. FOLLOW-UP WITH PRIMARY CARE PROVIDER IN 1-2 WEEKS. FOLLOW-UP WITH CARDIOLOGY IN 1-2 WEEKS. RETURN TO THE ER IF SYMPTOMS WORSEN. CALL or TEXT DR. SERRANO AT [phone] IF ANY QUESTIONS REGARDING HOSPITAL STAY. PLEASE CALL THE FLOOR AT [phone] IF ANY MEDICATION OR NURSING QUESTIONS. Diet: AHA Activity: Fall precautions Followup: Moses Cho MD [ACTIVE - CAN ADMIT] - (Call to make an appointment. )
[2020-04-21 17:41] VITALS: BP 129/86; TEMP 97
--- NOTE | 2020-04-23 08:32 | TREADMILL ---
70% H.R.: 127 85% H.R.: 155 90% H.R.: 164 100% H.R.: 182 DX: CHEST PAIN Date of Study: 04/20/2020 Ht: 5' 5 " Wt: 178 lb 4.8 oz Consulting Physician: ANDI MEDICATIONS: ASPIRIN, LOVENOX, LOPRESSOR, NO HOME MEDICATIONS HISTORY: NONE PHYSICIAL EXAMINATION: RESTING B.P.: 123/96 RESTING H.R.: 117 RESTING EKG: ATRIAL FLUTTER PROTOCOL: JODI/ ROUTINE EXERCISE TIME: 0:49 MAXIMUM HEART RATE: % OF PREDICTED B.P. AT PEAK STRESS: 127/90 H.R. AT 1 MINUTE POST EXERCISE: 164 IMPRESSION: STRESS TEST STOPPED FOR ARRHYTHMIA. BIGENEMY TO 6-8 RUNS OF VENTRICULAR TACHYCARDIA WITH SHORTNESS OF BREATH. PATIENT TEST STOPPED. VAGAL MENUVERS DONE COUGH/ BEAR DOWN. PATIENT PLACED ON 2 LITER CANNULA. RHYTHM BACK TO BASELINE. SINUS TACHYCARDIA AT 115 BEATS PER MINUTE. DOCTOR ZACH NOTIFIED.
== END 2020-04-21 16:44 | disposition home or self-care (01) | DRG 310 ==
LOC: ER 05:26 → ERHOLD 07:55 → 2ND 09:53 → OBSVTOIN 12:39
PROVIDERS: ADMIT Hospitalist; ATTEND Hospitalist
DX: I48.92 Unspecified atrial flutter (principal); I47.1 Supraventricular tachycardia; F17.210 Nicotine dependence, cigarettes, uncomplicated; Z79.82 Long term (current) use of aspirin; Z79.01 Long term (current) use of anticoagulants; Z79.899 Other long term (current) drug therapy; Z20.828 Contact with and (suspected) exposure to other viral communicable diseases
CPT/HCPCS: 36415; 71045; 71275; 80048; 80061; 80076; 80307; 83735; 83880; 84439; 84443; 84484; 85025; 85610; 93005; 93017; 93306; 96361; 96374; 96375; 99285; J0153; J1650; J2250; J7030; Q9967; U0003

== ENCOUNTER 2020-09-10 10:28 | Day surgery (SDC) | payer SELFPAY ==
[2020-09-06 11:49] LABS: Absolute Lymphocytes (CBC) 2.2 K/uL (0.7-4.9); Basophils % 1.1 % (0-1.3); Hematocrit 45.1 % (36.0-45.0); Lymphocytes % 24.6 % (15.3-44.8); MPV 9.6 fL (7.6-11.3); RBC Red Blood Cell Count 5.42 M/uL (3.86-4.86)
[2020-09-06 11:53] LABS: Protime INR 1.01
[2020-09-06 11:56] LABS: BUN Blood Urea Nitrogen 10 mg/dL (7-18); Bicarbonate 28 mmol/L (21-32); Glucose Level 87 mg/dL (74-106); Sodium Level 139 mmol/L (136-145)
[2020-09-10 10:46] LABS: Specific Gravity 1.015 (1.005-1.030)
[2020-09-10] MEDS ORDERED: NA CHLORIDE 0.9% 500 ML ONE (11:00)
[2020-09-10 11:25] VITALS: TEMP 97
[2020-09-10] MEDS ORDERED: MIDAZOLAM HCL 2 MG/2 ML INJ ONE (11:51)
[2020-09-10] MEDS ORDERED: HEPARIN 5000 UNIT/ML 1 ML VIAL ONE (11:51)
[2020-09-10] MEDS ORDERED: HEPA 1000U/500MLS 2,000 UNIT/1,000 ML BAG IV ONE (11:51)
[2020-09-10] MEDS ORDERED: HEPARIN 10,000 UNIT/10 ML VIAL IV ONE (11:52)
[2020-09-10] MEDS ORDERED: ATROPINE SULF 1 MG/10 ML SYR IV ONE (11:52)
[2020-09-10] MEDS ORDERED: FENTANYL CITR 100 MCG/2 ML ONE (11:52)
[2020-09-10] MEDS ORDERED: VERAPAMIL HCL 10 MG/4 ML VIAL IV ONE (11:53)
[2020-09-10] MEDS ORDERED: AMIODARONE HCL 150 MG/3 ML INJ IV ONE (12:17)
[2020-09-10] MEDS ORDERED: ADENOSINE 6 MG/ 2ML VIAL IV ONE (12:17)
[2020-09-10] MEDS ORDERED: METOPROLOL TARTRATE 5 MG/5 ML INJ IV ONE (12:17)
[2020-09-10] MEDS ORDERED: AMIODARONE IN DEXTROSE,ISO-OSM 0 MG/0 ML BAG IV ONE (12:17)
--- NOTE | 2020-09-10 12:41 | OP ---
Date of Procedure: 09/10/2020 Surgeon: LYNDA WOODARD Procedures Performed: 1.Selective coronary angiogram. 2.Left heart catheterization. Indication: Abnormal stress test. Access: Right radial artery 6-Cambodian closed with TR band. Complications: None. Bleeding: Less than 10 mL. Description Of Procedure: After risks, benefits, and alternatives were explained, the patient agreed to the procedure and signed informed consent. The patient was brought into the cardiac catheterizat ion laboratory, prepped and draped in usual sterile fashion. Then, we accessed right radial artery u sing pediatric micropuncture kit and a 6-Cambodian Slender sheath and then took a 5-Cambodian Francis 4.0 cat heter into the aortic root, engaged the left main and right coronary artery, took standard views and then removed catheters and sheath, and placed TR band. Findings: 1.Left main is normal. 2.LAD; large, wraps around the apex and supplies the inferior wall. It is totally normal. 3.Left circumflex; dominant, circulation is normal. 4.RCA; small nondominant and normal. 5.Catheter was pushed over the wire into the LV, took LVEDP and then upon pullback, there was no gra dient and LVEDP was 12 mmHg. Conclusion: 1.Normal coronary arteries. 2.LVEDP of 12 mmHg. Plan: Medical management. /TANYA Voice ID: [id number] Report ID: [id number]
[2020-09-10 14:43] VITALS: BP 112/65; O2SAT 100
== END 2020-09-10 14:49 | disposition home or self-care (01) ==
LOC: CCL 10:28
PROVIDERS: ATTEND Internal Medicine
PROC: 4A023N7 Measurement of Cardiac Sampling and Pressure, Left Heart, Percutaneous Approach (ICD-10-PCS; principal; 2020-09-10)
PROC: B201YZZ Plain Radiography of Multiple Coronary Arteries using Other Contrast (ICD-10-PCS; 2020-09-10)
PROC: B205YZZ Plain Radiography of Left Heart using Other Contrast (ICD-10-PCS; 2020-09-10)
DX: R94.39 Abnormal result of other cardiovascular function study (principal); I48.4 Atypical atrial flutter; I10 Essential (primary) hypertension; E78.5 Hyperlipidemia, unspecified; F17.210 Nicotine dependence, cigarettes, uncomplicated; Z20.822 Contact with and (suspected) exposure to COVID-19
CPT/HCPCS: 36415; 80048; 81025; 85025; 85610; 85730; 93458; C1893; J0153; J0282; J1644; J2250; J3010; J7040; U0002

== ENCOUNTER → 2023-05-03 | Emergency (ER) | payer SELFPAY ==
[~2023-05-03] MED LIST: MAGNESIUM SULFATE 1 gm IVPB 1 GM/100 ML BAG IV ONE
[2023-05-03 09:42] LABS: Absolute Lymphocytes (CBC) 2.2 K/uL (0.7-4.9); Hematocrit 46.1 % (36.0-45.0); MCV 81.9 fL (80-100); MPV 8.7 fL (7.6-11.3); Platelets 258 thou/uL (152-406); RBC Red Blood Cell Count 5.63 M/uL (3.86-4.86)
[2023-05-03 09:54] LABS: Potassium 3.9 mEq/L (3.5-5.1); Troponin High Sensitivity 5.5 pg/mL (<58.9)
--- NOTE | 2023-05-03 10:51 | RAD REPORT ---
EXAM DESCRIPTION: RAD - Chest Single View - 05/03/2023 9:56 am CLINICAL HISTORY: PALPITATIONS Chest pain. COMPARISON: <Comparisons> FINDINGS: Portable technique limits examination quality. The lungs are grossly clear. The heart is upper limit of normal in size. No displaced fractures. IMPRESSION: No acute intrathoracic process suspected.
--- NOTE | 2023-05-03 11:02 | EDPHYS ---
Physician Documentation [facility] Name: Carmel Gleason Age: 42 yrs Sex: Female : 1980 Arrival Date: 05/03/2023 Time: 09:16 Bed 8 Private MD: ED Physician Freddy Aldridge HPI: 05/03 09:24 This 42 yrs old Black Female presents to ER via EMS with complaints of fast pulse. rn 09:24 The patient presents with a history of heart racing. Context: The symptoms occur at rn rest. Onset: The symptoms/episode began/occurred this morning. Duration: The patient or guardian reports a single episode. Modifying factors: The symptoms are aggravated by Not taking her prescription medication The symptoms are alleviated by prescription medication. Associated signs and symptoms: Pertinent negatives: chest pain, fever. Severity of symptoms: At their worst the symptoms were moderate in the emergency department the symptoms have improved. The patient has experienced a previous episode. The patient has not recently seen a physician. Patient reports history of some sort of supraventricular tachycardia. Patient is not sure exactly what it was. Happened about a year ago. Admitted and put on beta-blockers including metoprolol and possibly sotalol. Patient reports cannot afford follow-up visit with ammonium sulfate operator and ran out of medication about a month ago. No recent infection. No drug use. Woke up this morning with heart racing and palpitations. States heart rate was about 130s, took metoprolol and now heart rate down to 90s and feels much better. No chest pain or shortness of breath. No abdominal pain. No vomiting.. Historical: - Allergies: 09:18 No Known Allergies; ld1 - Home Meds: 09:18 Metoprolol Tartrate Oral [Active]; Sotalol Oral [Active]; ld1 - PMHx: 09:18 Atrial fibrillation; Untreated STD; ld1 - Immunization history:: Adult Immunizations up to date. - Social history:: Smoking status: Patient denies any tobacco usage or history of. - Family history:: not pertinent. - Hospitalizations: : No recent hospitalization is reported. ROS: 09:24 Constitutional: Negative for fever, chills, and weight loss, Cardiovascular: Negative rn for chest pain, and edema Respiratory: Negative for shortness of breath, cough, wheezing, and pleuritic chest pain, Abdomen/GI: Negative for abdominal pain, nausea, vomiting, diarrhea, and constipation, Back: Negative for injury and pain, MS/Extremity: Negative for injury and deformity, Skin: Negative for injury, rash, and discoloration, Neuro: Negative for headache, weakness, numbness, tingling, and seizure, Exam: 09:24 Constitutional: This is a well developed, well nourished patient who is awake, alert, rn and in no acute distress. Head/Face: Normocephalic, atraumatic. Cardiovascular: Regular rate and rhythm. No pulse deficits. Respiratory: No increased work of breathing, no retractions or nasal flaring. Abdomen/GI: Soft, non-tender Skin: Warm, dry MS/ Extremity: Pulses equal, no cyanosis. Neuro: Awake and alert, GCS 15 Vital Signs: 09:26 BP 109 / 60; Pulse 67; Resp 20; Temp 98.4(TE); Pulse Ox 100% on R/A; Weight 86.18 kg; ld1 Height 5 ft. 8 in. ; Pain 0/10; 11:12 BP 132 / 71; Pulse 65; Resp 18; Pulse Ox 100% on R/A; Pain 0/10; ld1 09:26 Body Mass Index 28.89 (86.18 kg, 172.72 cm) ld1 09:26 Pain Scale: Adult ld1 11:12 Pain Scale: Adult ld1 MDM: 09:18 Patient medically screened. [facility] 11:00 Differential diagnosis: arrythmia, dehydration, stress disorder. Data reviewed: vital rn signs, nurses notes, lab test result(s), EKG, and as a result, I will discharge patient. Counseling: I had a detailed discussion with the patient and/or guardian regarding the historical points, exam findings, and any diagnostic results supporting the discharge/admit diagnosis, lab results, radiology results, the need for outpatient follow up, to return to the emergency department if symptoms worsen or persist or if there are any questions or concerns that arise at home. Special discussion: I discussed with the patient/guardian in detail that at this point there is no indication for admission to the hospital. It is understood, however, that if the symptoms persist or worsen the patient needs to return immediately for re-evaluation. Based on the history and exam findings, there is no indication for further emergent testing or inpatient evaluation. I discussed with the patient/guardian the need to see the ammonium sulfate operator for further evaluation of the symptoms. ED course: Patient in sinus rhythm the entire time here. Helped by taking her metoprolol prior to coming in. No medication here. No evidence of heart damage or electrolyte disorder. Stable vital signs. Will refill patient's sotalol at this time, patient states has enough money to fill that prescription. Will hold off on metoprolol given borderline blood pressure and I am worried that she will become hypotensive and passed out. Patient to follow-up with PCP or cardiology for further recommendations. I have personally reviewed all of the results, including but not limited to blood tests and imaging deemed necessary to safely discharge this patient at this time. All results given to and printed out for patient. I personally went over all the results with the patient and answered all questions. Patient will follow-up with PCP and or specialist as discussed. Return precautions given and understood.. 05/03 09:23 Order name: Basic Metabolic Panel; Complete Time: :55 05/03 09:23 Order name: CBC with Diff; Complete Time: : rn 05/03 09:23 Order name: NT PRO-BNP; Complete Time: : rn 05/03 09:23 Order name: Troponin HS; Complete Time: : 05/03 09:23 Order name: XRAY Chest (1 view); Complete Time: 10:52 rn 05/03 09:23 Order name: EKG; Complete Time: 09: rn 05/03 09:23 Order name: Cardiac monitoring; Complete Time: : 05/03 09:23 Order name: EKG - Nurse/Tech; Complete Time: : rn 05/03 09:23 Order name: IV Saline Lock; Complete Time: : rn 05/03 09:23 Order name: Labs collected and sent; Complete Time: : rn 05/03 09:23 Order name: O2 Per Protocol; Complete Time: : rn 05/03 09:23 Order name: O2 Sat Monitoring; Complete Time: : rn Administered Medications: : Drug: Magnesium Sulfate IVPB 1 grams IVPB once over 1 hrs Route: IVPB; Infused Over: 1 ld1 hrs; Site: left antecubital; 10:45 Follow up: Response: No adverse reaction; IV Status: Completed infusion; IV Intake: kc6 100ml Disposition Summary: 05/03/23 11:01 Discharge Ordered Notes: Location: Home rn Problem: new rn Symptoms: have improved rn Condition: Stable rn Diagnosis - Palpitations rn Followup: rn - With: Private Physician - When: As needed - Reason: Recheck today's complaints, Re-evaluation by your physician Discharge Instructions: - Discharge Summary Sheet rn - Palpitations rn Forms: - Medication Reconciliation Form rn - Thank You Letter rn - Antibiotic apparel patternmaker - Prescription Opioid Use rn - Patient Portal Instructions rn - Leadership Thank You Letter rn Prescriptions: - sotalol 80 mg Oral tablet - take 1 tablet ORAL route every 12 hours; 60 tablet; Refills: 0, Product rn Selection Permitted Signatures: Dispatcher [employer] Freddy De Leon MD MD rn Sims, Lauren, RN RN ld1 Maranda Romero, CLASSIFYING MACHINE OPERATOR CLASSIFYING MACHINE OPERATOR jh7 Sruthi Brizuela RN kc6
--- NOTE | 2023-05-03 11:02 | ER ---
Nurse's Notes [facility] Name: Carmel Gleason Age: 42 yrs Sex: Female : 1980 Arrival Date: 05/03/2023 Time: 09:16 Bed 8 Private MD: Diagnosis: Palpitations Presentation: 05/03 09:20 Chief complaint: EMS states: toned out for elevated heart rate. Pt reports history of ld1 Afib, not on blood thinners. Coronavirus screen: At this time, the client does not indicate any symptoms associated with coronavirus-19. Ebola Screen: No symptoms or risks identified at this time. Initial Sepsis Screen:. Risk Assessment: Do you want to hurt yourself or someone else? Patient reports no desire to harm self or others. Onset of symptoms was May 03, 2023. 09:20 Method Of Arrival: EMS: [facility] ld1 09:20 Acuity: DELLA 3 ld1 11:12 Initial Sepsis Screen: Does the patient meet any 2 criteria? No. Patient's initial ld1 sepsis screen is negative. Does the patient have a suspected source of infection? No. Patient's initial sepsis screen is negative. Triage Assessment: 09:18 General: Appears in no apparent distress. comfortable, Behavior is calm, cooperative, ld1 appropriate for age. Pain: Denies pain. EENT: No signs and/or symptoms were reported regarding the EENT system. Neuro: Level of Consciousness is awake, alert, obeys commands, Oriented to person, place, time, situation. Cardiovascular: Capillary refill < 3 seconds Patient's skin is warm and dry. Rhythm is atrial fibrillation. Respiratory: Airway is patent Respiratory effort is even, unlabored. GI: Abdomen is round non-distended. : No signs and/or symptoms were reported regarding the genitourinary system. Derm: No signs and/or symptoms reported regarding the dermatologic system. Musculoskeletal: No signs and/or symptoms reported regarding the musculoskeletal system. Historical: - Allergies: 09:18 No Known Allergies; ld1 - Home Meds: 09:18 Metoprolol Tartrate Oral [Active]; Sotalol Oral [Active]; ld1 - PMHx: 09:18 Atrial fibrillation; Untreated STD; ld1 - Immunization history:: Adult Immunizations up to date. - Social history:: Smoking status: Patient denies any tobacco usage or history of. - Family history:: not pertinent. - Hospitalizations: : No recent hospitalization is reported. Screenin:21 [facility] ED Fall Risk Assessment (Adult) History of falling in the last 3 months, ld1 including since admission No falls in past 3 months (0 pts). Abuse screen: Denies threats or abuse. Denies injuries from another. Nutritional screening: No deficits noted. Tuberculosis screening: No symptoms or risk factors identified. Assessment: :21 Reassessment: See triage assessment. ERP at bedside. ld1 11:12 Reassessment: Patient appears in no apparent distress at this time. No changes from ld1 previously documented assessment. Patient and/or family updated on plan of care and expected duration. Pain level reassessed. Patient is alert, oriented x 3, equal unlabored respirations, skin warm/dry/pink. Patient states feeling better. Vital Signs: 09:26 BP 109 / 60; Pulse 67; Resp 20; Temp 98.4(TE); Pulse Ox 100% on R/A; Weight 86.18 kg; ld1 Height 5 ft. 8 in. ; Pain 0/10; 11:12 BP 132 / 71; Pulse 65; Resp 18; Pulse Ox 100% on R/A; Pain 0/10; ld1 09:26 Body Mass Index 28.89 (86.18 kg, 172.72 cm) ld1 09:26 Pain Scale: Adult ld1 11:12 Pain Scale: Adult ld1 ED Course: 09:17 Patient arrived in ED. ld1 09:18 Maranda Romero FNP is [facility] 09:18 Freddy Aldridge MD is Attending Physician. 7 09:18 Arm band placed on right wrist. ld1 09:21 Triage completed. ld1 09:21 Patient has correct armband on for positive identification. Placed in gown. Bed in low ld1 position. Call light in reach. Side rails up X2. playground monitor on. Pulse ox on. NIBP on. Door closed. Noise minimized. Warm blanket given. 09:21 No provider procedures requiring assistance completed. ld1 09:26 Natasha Schwarz, MYRIAM is Primary Nurse. ld1 09:26 Maintain EMS IV. Dressing intact. Good blood return noted. Site clean \T\ dry. Gauge \T\ ld 1 site: 18G LAC. 09:58 XRAY Chest (1 view) In Process Unspecified. EDMS 11:11 IV discontinued, intact, bleeding controlled, No redness/swelling at site. ld1 Administered Medications: 09:31 Drug: Magnesium Sulfate IVPB 1 grams IVPB once over 1 hrs Route: IVPB; Infused Over: 1 ld1 hrs; Site: left antecubital; 10:45 Follow up: Response: No adverse reaction; IV Status: Completed infusion; IV Intake: kc6 100ml Medication: 09:21 VIS not applicable for this client. ld1 Intake: 10:45 IV: 100ml; Total: 100ml. kc6 Outcome: 11:01 Discharge ordered by . rn 11:11 Discharged to home ambulatory, with family, ld1 11:11 Condition: stable 11:11 Discharge instructions given to patient, family, Instructed on discharge instructions, follow up and referral plans. medication usage, Demonstrated understanding of instructions, follow-up care, medications, Prescriptions given X 1, 11:12 Patient left the ED. ld1 Signatures: Dispatcher [employer] EDMS Freddy Aldridge MD MD rn Sims, Lauren RN RN ld1 Maranda Romero FNP MICROWAVE OVEN ASSEMBLER jh7 Sruthi Brizuela RN RN kc6
[2023-05-03 11:32] VITALS: BP 132/71; TEMP 98.4; O2SAT 100
== END ==
LOC: ER 09:16
DX: R00.2 Palpitations (principal)
CPT/HCPCS: 36415; 71045; 80048; 83880; 84484; 85025; 93005; 96365; 99284; J3475

== ENCOUNTER → 2023-07-24 | Emergency (ER) | payer SELFPAY ==
[~2023-07-24] MED LIST changes: +AMOX/K CLAV 875 MG TAB ONE; -MAGNESIUM SULFATE 1 gm IVPB 1 GM/100 ML BAG IV ONE
--- NOTE | 2023-07-24 19:47 | EDPHYS ---
Physician Documentation [facility] Name: Carmel Gleason Age: 42 yrs Sex: Female : 1980 Arrival Date: 07/24/2023 Time: 19:06 Bed 16 Private MD: ED Physician Antony Erickson HPI: 07/23 19:51 This 42 yrs old Black Female presents to ER via Ambulatory with complaints of Mouth kb Swelling. 19:51 Patient is a 42-year-old female who presents for swelling to the left lower jaw that kb started today. States she has had intermittent tooth ache over the last week. Denies fever.. MANAGER OUTPATIENT: 19:13 LMP 07/2023, unknown lg3 Historical: - Allergies: 19:13 No Known Allergies; lg3 - Home Meds: 19:13 Metoprolol Tartrate Oral [Active]; sotalol Oral [Active]; lg3 - PMHx: 19:13 Atrial fibrillation; Untreated STD; lg3 - PSHx: 19:13 None; lg3 - Immunization history:: Adult Immunizations up to date, Client reports having NOT received the Covid vaccine. Flu vaccine is not up to date. - Social history:: Smoking status: Patient reports the use of cigarette tobacco products, smokes one-half pack cigarettes per day, Patient uses alcohol, admits to "couple of beers" a day. Patient/guardian denies using street drugs. ROS: 19:51 Constitutional: As per HPI kb Exam: 19:51 Constitutional: This is a well developed, well nourished patient who is awake, alert, kb and in no acute distress. Head/Face: Normocephalic, atraumatic. Cardiovascular: Regular rate Respiratory: Respirations even and unlabored. No increased work of breathing. Talking in full sentences Skin: Warm, dry with normal turgor. Normal color. MS/ Extremity: Pulses equal, no cyanosis. Neurovascular intact. Full, normal range of motion. Neuro: Awake and alert, GCS 15, oriented to person, place, time, and situation. Moves all extremities. Normal gait. 19:51 ENT: Dental exam: gum swelling, that is mild, specifically in the lower left first molar (#19), lower left second bicuspid (#20) and lower left first bicuspid (#21), Vital Signs: 19:12 BP 148 / 82; Pulse 87; Resp 17 S; Temp 98(TE); Pulse Ox 99% on R/A; Weight 82.55 kg lg3 (R); Height 5 ft. 4 in. (R); Pain 0/10; 20:05 BP 150 / 95; Pulse 84; Resp 16; Temp 98.2(O); Pulse Ox 100% ; Pain 4/10; me1 19:12 Body Mass Index 31.24 (82.55 kg, 162.56 cm) lg3 19:12 Pain Scale: Adult lg3 20:05 Pain Scale: Adult me1 MDM: 19:32 Patient medically screened. laureano 19:34 Patient medically screened. kb 19:51 Differential diagnosis: dental caries, gingivitis, dental abscess, pericoronitis. Data kb reviewed: vital signs, nurses notes. Counseling: I had a detailed discussion with the patient and/or guardian regarding the historical points, exam findings, and any diagnostic results supporting the discharge/admit diagnosis, the need for outpatient follow up, a dentist, to return to the emergency department if symptoms worsen or persist or if there are any questions or concerns that arise at home. Administered Medications: 20:01 Drug: Amoxicillin-Clavulanate PO 875 mg PO once Route: PO; me1 20:05 Follow up: Response: No adverse reaction me1 Disposition Summary: 07/24/23 19:46 Discharge Ordered Notes: Location: Home kb Condition: Stable kb Diagnosis - Periapical abscess without sinus kb Followup: kb - With: Emergency Department - When: As needed - Reason: Worsening of condition Followup: kb - With: Private Physician - When: 2 - 3 days - Reason: Recheck today's complaints, Continuance of care, Re-evaluation by your physician Discharge Instructions: - Discharge Summary Sheet kb - Dental Pain, [id number] kb - Dental Abscess, [id number] kb Forms: - Medication Reconciliation Form kb - Thank You Letter kb - Antibiotic Education kb - Prescription Opioid Use kb - Patient Portal Instructions kb - Leadership Thank You Letter kb Prescriptions: - Augmentin 875-125 mg Oral Tablet - take 1 tablet ORAL route every 12 hours for 10 days; 20 tablet; Refills: 0, kb Product Selection Permitted Signatures: Jana Dowd, MARA-Brant TERRY-Antony Crawford MD MD cha Able, Mary, RN RN lg3 Yue Moody, RN RN me1
--- NOTE | 2023-07-24 19:47 | ER ---
Nurse's Notes [facility] Name: Carmel Gleason Age: 42 yrs Sex: Female : 1980 Arrival Date: 07/24/2023 Time: 19:06 Bed 16 Private MD: Diagnosis: Periapical abscess without sinus Presentation: 07/23 19:12 Chief complaint: Patient states: left lower tooth pain X1 week. new lower facial lg3 swelling beginning this morning. Coronavirus screen: Client denies travel out of the [place] in the last 14 days. At this time, the client does not indicate any symptoms associated with coronavirus-19. Ebola Screen: No symptoms or risks identified at this time. Initial Sepsis Screen: Does the patient meet any 2 criteria? No. Patient's initial sepsis screen is negative. Does the patient have a suspected source of infection? No. Patient's initial sepsis screen is negative. Risk Assessment: Do you want to hurt yourself or someone else? Patient reports no desire to harm self or others. Onset of symptoms is unknown. 19:12 Method Of Arrival: Ambulatory lg3 19:12 Acuity: DELLA 4 lg3 Triage Assessment: 19:13 General: Appears in no apparent distress. comfortable, Behavior is calm, cooperative. lg3 Pain: Denies pain. EENT: Oral mucosa is moist. Neuro: No deficits noted. Deleon Agitation-Sedation Scale (RASS): 0 - Alert and Calm Level of Consciousness is awake, alert, obeys commands, Oriented to person, place, time, situation. Cardiovascular: No deficits noted. Denies chest pain, shortness of breath, Capillary refill < 3 seconds Clubbing of nail beds is absent JVD is absent Patient's skin is warm and dry. Respiratory: No deficits noted. Airway is patent Respiratory effort is even, unlabored, Respiratory pattern is regular, symmetrical. GI: No deficits noted. No signs and/or symptoms were reported involving the gastrointestinal system. : No deficits noted. No signs and/or symptoms were reported regarding the genitourinary system. Derm: Skin is intact, is healthy with good turgor, Skin is dry, Skin is normal, Skin temperature is warm. Musculoskeletal: Circulation, motion, and sensation intact. Range of motion: intact in all extremities, Swelling present in left jaw. RN INTERVENTIONAL: 19:13 LMP 07/2023, unknown lg3 Historical: - Allergies: 19:13 No Known Allergies; lg3 - Home Meds: 19:13 Metoprolol Tartrate Oral [Active]; sotalol Oral [Active]; lg3 - PMHx: 19:13 Atrial fibrillation; Untreated STD; lg3 - PSHx: 19:13 None; lg3 - Immunization history:: Adult Immunizations up to date, Client reports having NOT received the Covid vaccine. Flu vaccine is not up to date. - Social history:: Smoking status: Patient reports the use of cigarette tobacco products, smokes one-half pack cigarettes per day, Patient uses alcohol, admits to "couple of beers" a day. Patient/guardian denies using street drugs. Screenin:04 [facility] ED Fall Risk Assessment (Adult) History of falling in the last 3 months, me1 including since admission No falls in past 3 months (0 pts) Confusion or Disorientation No (0 pts) Intoxicated or Sedated No (0 pts) Impaired Gait No (0 pts) Mobility Assist Device Used No (0 pt) Altered Elimination No (0 pt) Score/Fall Risk Level 0 - 2 = Low Risk Maintained a safe environment, Provided non-skid footwear, Hourly rounding (assess needs \\T\\ fall precautionary measures) done. Abuse screen: Denies threats or abuse. Nutritional screening: No deficits noted. Tuberculosis screening: No symptoms or risk factors identified. Assessment: 19:30 General: Appears uncomfortable, well groomed, well developed, well nourished, Behavior me1 is calm, cooperative, appropriate for age, Reports left lower tooth pain X1 week. new lower facial swelling beginning this morning. Pain: Complains of pain in lower left first bicuspid (#21) and lower left second bicuspid (#20) and lower left first molar (#19) and face and left jaw Pain does not radiate. Pain currently is 4 out of 10 on a pain scale. Quality of pain is described as aching, Pain began gradually, this morning Is continuous. Neuro: Level of Consciousness is awake, alert, obeys commands, Oriented to person, place, time, situation, Appropriate for age. Cardiovascular: Patient's skin is warm and dry. Respiratory: Airway is patent Respiratory effort is even, unlabored, Respiratory pattern is regular, symmetrical. EENT: Reports pain in lower left first bicuspid (#21) and lower left second bicuspid (#20) and lower left first molar (#19) and face and left jaw. Derm: Skin is intact, is healthy with good turgor, Skin is pink, warm \\T\\ dry. Vital Signs: 19:12 BP 148 / 82; Pulse 87; Resp 17 S; Temp 98(TE); Pulse Ox 99% on R/A; Weight 82.55 kg lg3 (R); Height 5 ft. 4 in. (R); Pain 0/10; 20:05 BP 150 / 95; Pulse 84; Resp 16; Temp 98.2(O); Pulse Ox 100% ; Pain 4/10; me1 19:12 Body Mass Index 31.24 (82.55 kg, 162.56 cm) lg3 19:12 Pain Scale: Adult lg3 20:05 Pain Scale: Adult ky1 ED Course: 19:08 Patient arrived in ED. mr 19:13 Triage completed. lg3 19:13 Arm band placed on left wrist. lg3 19:30 Yue Moody, MYRIAM is Primary Nurse. me1 19:31 Jana Dowd FNP-C is PHCP. kb 19:31 Antony Erickson MD is Attending Physician. kb 20:04 Patient has correct armband on for positive identification. Bed in low position. Call me1 light in reach. Side rails up X2. Provided Education on: POC. Verbalized understanding. . 20:04 No provider procedures requiring assistance completed. Patient did not have IV access me1 during this emergency room visit. Administered Medications: 20:01 Drug: Amoxicillin-Clavulanate PO 875 mg PO once Route: PO; me1 20:05 Follow up: Response: No adverse reaction me1 Medication: 20:10 VIS not applicable for this client. me1 Outcome: 19:46 Discharge ordered by . kb 20:11 Discharged to home ambulatory, me1 20:11 Condition: stable 20:11 Discharge instructions given to patient, Instructed on discharge instructions, follow up and referral plans. medication usage, Demonstrated understanding of instructions, follow-up care, medications, Prescriptions given X 1, 20:11 Patient left the ED. me1 Signatures: Jana Dowd FNP-C FRONT FACER-Laurie Sharma, Reg Reg mr Mary Sprign RN RN lg3 Yue Moody, MYRIAM RN me1 Corrections: (The following items were deleted from the chart) 20:02 19:12 Chief complaint: Patient states: left lower tooth pain X1 week. new lower facial me1 swelling beginning this morning lg3
[2023-07-24 20:44] VITALS: BP 150/95; TEMP 98.2; O2SAT 100
== END ==
LOC: ER 19:06
DX: K04.7 Periapical abscess without sinus (principal); F17.210 Nicotine dependence, cigarettes, uncomplicated
CPT/HCPCS: 99283

== ENCOUNTER 2023-08-09 14:48 | Emergency (ER) | payer OTHER, SELFPAY ==
--- OUTSIDE RECORDS SUMMARY | 2023-08-09 14:50 | XMS REPORT | Continuity of Care Document ---
Author Name Unknown Address [address] [place] [address] [facility] thconnect Address [address] [place] [address] Care Team Providers Care Glove Wrapper Name Role Phone PCP, PATIENT DOES NOT HAVE A Primary Care Physic tyron Unavailable ABHI BAXTER Attending Clinician Unavailab KELLEE Alston Admitting Clinician Nadine vailable Allergies, Adverse Reactions, Alerts Allergy Name Allergy Type Status Severity Reaction(s) Onset Date Inactive Date Treating Clinician Comments Source NO KNOWN ALLERGIE S Drug Class Active [facility] Encounters Start Date/Time End Date/Time Encounter Type Admission Type Attending Clinicians Care Facility Care Department Encounter ID Source 2023-07-25 08:34:00 2023-07-25 11:45:00 Emergency X ABHI BAXTER [facility] ERT [id number] [facility] 2023-07-25 08:34:00 2023-07-25 11:45:00 Emergency X ABHI BAXTER [facility] ERT [id number] [facility]
[2023-08-09] MEDS ORDERED: TRAMADOL HCL 50 MG TAB ONE (15:58)
--- NOTE | 2023-08-09 16:55 | RAD REPORT ---
EXAM DESCRIPTION: RAD - Hip Right 2 View - 08/09/2023 4:31 pm CLINICAL HISTORY: PAIN COMPARISON: No comparisons FINDINGS/IMPRESSION: No acute fracture. No dislocation. Mild right acetabular joint degenerative laureano nges.
--- NOTE | 2023-08-09 17:02 | ER ---
Nurse's Notes [facility] Name: Carmel Gleason Age: 42 yrs Sex: Female : 1980 Arrival Date: 08/09/2023 Time: 14:48 Bed IW1 Private MD: Diagnosis: Pain in right hip Presentation: 08/08 15:15 Chief complaint: Patient states: Right hip/leg pain since Thursday, getting worse. nj1 Unknown injury. Has tried iced and a muscle relaxant for pain with no significant relief. Coronavirus screen: Vaccine status: Patient reports being unvaccinated. Ebola Screen: Patient denies travel to an Ebola-affected area in the 21 days before illness onset. Initial Sepsis Screen: Does the patient meet any 2 criteria? No. Patient's initial sepsis screen is negative. Does the patient have a suspected source of infection? No. Patient's initial sepsis screen is negative. Risk Assessment: Do you want to hurt yourself or someone else? Patient reports no desire to harm self or others. Onset of symptoms was August 07, 2023. 15:15 Method Of Arrival: Wheelchair nj 15:15 Acuity: DELLA 3 nj1 Triage Assessment: 15:18 General: Appears in no apparent distress. comfortable, Behavior is calm, cooperative, nj1 appropriate for age. Pain: Complains of pain in right leg Pain currently is 5 out of 10 on a pain scale. Neuro: No deficits noted. Respiratory: No deficits noted. Historical: - Allergies: 15:17 No Known Allergies; nj1 - PMHx: 15:17 Untreated STD; Atrial fibrillation; nj1 - PSHx: 15:17 None; nj1 - Immunization history:: Client reports having NOT received the Covid vaccine. - Infectious Disease History:: Denies. - Social history:: Smoking status: Patient reports the use of cigarette tobacco products, smokes one-half pack cigarettes per day. Screenin:00 [facility] ED Fall Risk Assessment (Adult) History of falling in the last 3 months, hb including since admission No falls in past 3 months (0 pts) Confusion or Disorientation No (0 pts) Intoxicated or Sedated No (0 pts) Impaired Gait No (0 pts) Mobility Assist Device Used No (0 pt) Altered Elimination No (0 pt) Score/Fall Risk Level 0 - 2 = Low Risk Oriented to surroundings, Maintained a safe environment. Abuse screen: Denies threats or abuse. Denies injuries from another. Nutritional screening: No deficits noted. Tuberculosis screening: No symptoms or risk factors identified. Assessment: 16:07 Reassessment: Patient appears in no apparent distress at this time. nj1 17:00 General: Appears in no apparent distress. uncomfortable, Behavior is calm, cooperative. hb Neuro: Level of Consciousness is awake, alert, obeys commands, Oriented to person, place, time, situation. Cardiovascular: Patient's skin is warm and dry. Respiratory: Respiratory effort is even, unlabored, Respiratory pattern is regular, symmetrical. Musculoskeletal: Reports right hip pain. Vital Signs: 15:15 BP 124 / 78; Pulse 88; Resp 16; Temp 97.2(TE); Pulse Ox 99% ; Weight 84.37 kg; Height 5 nj1 ft. 4 in. ; Pain 5/10; 15:15 Body Mass Index 31.93 (84.37 kg, 162.56 cm) [facility] 15:15 Pain Scale: Adult [facility] ED Course: 14:50 Patient arrived in ED. rg4 14:53 Jana Dowd FNP-C [facility]. kb 14:53 Antony Erickson MD is Attending Physician. kb 15:17 Triage completed. nj1 15:18 Arm band placed on left wrist. nj1 16:33 Hip Right 2 View XRAY In Process Unspecified. EDMS 17:54 Patient has correct armband on for positive identification. Provided Education on: hb medications, follow up. 17:54 No provider procedures requiring assistance completed. Patient did not have IV access hb during this emergency room visit. Administered Medications: 16:07 Drug: traMADol PO 50 mg PO once Route: PO; nj1 Medication: 17:00 VIS not applicable for this client. hb Outcome: 17:01 Discharge ordered by . kb 17:54 Discharged to home via wheelchair, with family, hb 17:54 Condition: stable 17:54 Discharge instructions given to patient, Instructed on discharge instructions, follow up and referral plans. medication usage, Demonstrated understanding of instructions, follow-up care, medications, Prescriptions given X 2, 17:55 Patient left the ED. bd Signatures: Dispatcher [employer] EDMS Jana Dowd FNP-C FNP-Ckb Dirrim, Barbara bd Baxter, Heather, RN RN hb Kirsten Cespedes rg4 Carolynn Fernandes, RN RN nj1
--- NOTE | 2023-08-09 17:02 | EDPHYS ---
Physician Documentation [facility] Name: Carmel Gleason Age: 42 yrs Sex: Female : 1980 Arrival Date: 08/09/2023 Time: 14:48 Bed IW1 Private MD: ED Physician Antony Erickson HPI: 08/08 15:19 This 42 yrs old Black Female presents to ER via Wheelchair with complaints of Leg Pain. kb 15:19 Pt is a 42 year old female who presents with pain to right hip that started Thursday and kb has gotten progressively worse. Reports she ran into a desk. Pain increases with movement, ambulating and palpation. Historical: - Allergies: 15:17 No Known Allergies; nj1 - PMHx: 15:17 Untreated STD; Atrial fibrillation; nj1 - PSHx: 15:17 None; nj1 - Immunization history:: Client reports having NOT received the Covid vaccine. - Infectious Disease History:: Denies. - Social history:: Smoking status: Patient reports the use of cigarette tobacco products, smokes one-half pack cigarettes per day. ROS: 15:18 Constitutional: As per HPI kb Exam: 15:18 Constitutional: This is a well developed, well nourished patient who is awake, alert, kb and in no acute distress. Head/Face: Normocephalic, atraumatic. ENT: Moist Mucous membranes Cardiovascular: Regular rate Respiratory: Respirations even and unlabored. No increased work of breathing. Talking in full sentences Abdomen/GI: Soft, non-tender. No distention Skin: Warm, dry with normal turgor. Normal color. Neuro: Awake and alert, GCS 15, oriented to person, place, time, and situation. Moves all extremities. Normal gait. 15:18 Musculoskeletal/extremity: Extremities: grossly normal except: noted in the right hip: pain, tenderness, ROM: intact in all extremities, Circulation is intact in all extremities. Sensation intact. Weight bearing: able to fully bear weight, Vital Signs: 15:15 BP 124 / 78; Pulse 88; Resp 16; Temp 97.2(TE); Pulse Ox 99% ; Weight 84.37 kg; Height 5 nj1 ft. 4 in. ; Pain 5/10; 15:15 Body Mass Index 31.93 (84.37 kg, 162.56 cm) nj1 15:15 Pain Scale: Adult nj1 MDM: 14:54 Patient medically screened. kb 15:19 Differential diagnosis: closed fracture, contusion. Data reviewed: vital signs, nurses kb notes. 17:01 Counseling: I had a detailed discussion with the patient and/or guardian regarding the kb historical points, exam findings, and any diagnostic results supporting the discharge/admit diagnosis, radiology results, the need for outpatient follow up, a family practitioner, to return to the emergency department if symptoms worsen or persist or if there are any questions or concerns that arise at home. 08/08 15:14 Order name: Hip Right 2 View XRAY; Complete Time: 17:00 [facility] Administered Medications: 16:07 Drug: traMADol PO 50 mg PO once Route: PO; nj1 Disposition Summary: 08/09/23 17:01 Discharge Ordered Notes: Location: Home kb Condition: Stable kb Diagnosis - Pain in right hip kb Followup: kb - With: Emergency Department - When: As needed - Reason: Worsening of condition Followup: kb - With: Private Physician - When: 2 - 3 days - Reason: Recheck today's complaints, Continuance of care, Re-evaluation by your physician Discharge Instructions: - Discharge Summary Sheet kb - Musculoskeletal Pain kb Forms: - Medication Reconciliation Form kb - Thank You Letter kb - Antibiotic Education kb - Prescription Opioid Use kb - Patient Portal Instructions kb - Leadership Thank You Letter kb - Work release form hb Prescriptions: - Diclofenac Sodium 75 mg Oral tablet, delayed release (enteric coated) - take 1 tablet ORAL route 2 times per day As needed; 30 tablet; Refills: 0, kb Product Selection Permitted - orphenadrine citrate 100 mg Oral Tablet Sustained Release - take 1 tablet ORAL route 2 times per day As needed; 20 tablet; Refills: 0, kb Product Selection Permitted Signatures: Dispatcher [employer] Jana Houser, FREDI MARIEP-Carolynn Colon, RN RN nj1
[2023-08-10 00:21] VITALS: BP 124/78; TEMP 97.2; O2SAT 99
== END 2023-08-09 17:55 | disposition home or self-care (01) ==
LOC: ER 14:48
DX: M25.551 Pain in right hip (principal); F17.210 Nicotine dependence, cigarettes, uncomplicated; Z28.310 Unvaccinated for COVID-19
CPT/HCPCS: 99283

== ENCOUNTER 2024-07-22 12:24 | Emergency (ER) | payer SELFPAY ==
--- OUTSIDE RECORDS SUMMARY | 2024-07-22 12:27 | XMS REPORT | Continuity of Care Document ---
Author Name Unknown Address [address] [place] [address] [facility] Address 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 Name Role Phone PCP, PATIENT DOES NOT HAVE A Primary Care Physic tyron Unavailable ABHI BAXTER Attending Clinician Unavailab KELLEE Alston Admitting Clinician Nadine vailable Payers Payer Name Policy Type Policy Number Effective Date Expirati on Date Source [employer] IN[employer] [id number] 2023 00:00:00 2023 00:00:00 Allergies, Adverse Reactions, Alerts Allergy Name Allergy Type Status Severity Reaction(s) Onset Date Inactive Date Treating Clinician Comments Source NO KNOWN ALLERGIE S Drug Class Active [facility] Encounters Start Date/Time End Date/Time Encounter Type Admission Type Attending Clinicians Care Facility Care Department Encounter ID Source 2023-07-25 08:34:00 2023-07-25 11:45:00 Emergency X ABHI ABXTER [facility] ERT [id number] [facility] 2023-07-25 08:34:00 2023-07-25 11:45:00 Emergency X ABHI BAXTER [facility] ERT [id number] [facility]
--- NOTE | 2024-07-22 14:17 | RAD REPORT ---
EXAMINATION: ONE VIEW CHEST XR CLINICAL INDICATION: COUGH TECHNIQUE: Frontal chest projection is submitted. Examination is limited by patient positioning and t echnique. COMPARISON: 05/03/2023 FINDINGS: Mild interstitial prominence is present, probably bronchitis or asthma. The heart is upper limit of n ormal in size. No displaced fractures identified.
--- NOTE | 2024-07-22 14:19 | ER ---
Nurse's Notes [facility] Name: Carmel Gleason Age: 43 yrs Sex: Female : 1980 Arrival Date: 07/22/2024 Time: 12:24 Bed IW1 Private MD: Diagnosis: Acute bronchitis, unspecified Presentation: 07/22 13:14 Chief complaint: Patient states: cough, sore throat. Initial Sepsis Screen: Does the iw patient meet any 2 criteria? No. Patient's initial sepsis screen is negative. Does the patient have a suspected source of infection? No. Patient's initial sepsis screen is negative. Risk Assessment: Do you want to hurt yourself or someone else? Patient reports no desire to harm self or others. Onset of symptoms. 13:14 Acuity: DELLA 4 iw 13:14 Method Of Arrival: Ambulatory iw 13:15 Coronavirus screen: At this time, the client does not indicate any symptoms associated iw with coronavirus-19. Ebola Screen: No symptoms or risks identified at this time. Historical: - Allergies: 13:15 No Known Allergies; iw - PMHx: 13:15 Untreated STD; Atrial fibrillation; iw Screenin:16 [facility] ED Fall Risk Assessment (Adult) History of falling in the last 3 months, iw including since admission No falls in past 3 months (0 pts) Confusion or Disorientation No (0 pts) Intoxicated or Sedated No (0 pts) Impaired Gait No (0 pts) Mobility Assist Device Used No (0 pt) Altered Elimination No (0 pt) Score/Fall Risk Level 0 - 2 = Low Risk Oriented to surroundings. Abuse screen: Denies threats or abuse. Nutritional screening: No deficits noted. Tuberculosis screening: No symptoms or risk factors identified. Assessment: 13:15 General: Appears in no apparent distress. Behavior is calm, cooperative. Pain: iw Complains of pain in throat. Neuro: Level of Consciousness is awake, alert, obeys commands, Oriented to person, place, time, situation, Moves all extremities. Cardiovascular: Respiratory: Airway is patent Respiratory effort is even, unlabored. GI: Abdomen is non-distended. EENT: Throat. Derm: Skin is intact, is healthy with good turgor. 16:02 Reassessment: Patient appears in no apparent distress at this time. Patient and/or hb family updated on plan of care and expected duration. Pain level reassessed. Patient is alert, oriented x 3, equal unlabored respirations, skin warm/dry/pink. Vital Signs: 13:15 BP 146 / 84; Pulse 81; Resp 16; Pulse Ox 100% on R/A; iw ED Course: 12:26 Patient arrived in ED. mr 12:35 Negra Hernandez MD is Attending Physician. gb1 13:15 Triage completed. iw 13:15 Kristine Ferraro, RN is Primary Nurse. iw 13:15 Arm band placed on. iw 14:11 CXR XRAY In Process Unspecified. EDMS 16:02 No provider procedures requiring assistance completed. Patient did not have IV access hb during this emergency room visit. Administered Medications: No medications were administered Medication: 13:16 VIS not applicable for this client. iw Outcome: 14:19 Discharge ordered by . gb1 16:02 Discharged to home ambulatory, hb 16:02 Condition: stable 16:02 Discharge instructions given to patient, Instructed on discharge instructions, follow up and referral plans. medication usage, Demonstrated understanding of instructions, follow-up care, medications, Prescriptions given X 2, 16:03 Patient left the ED. hb Signatures: Dispatcher [employer] EDWI MartyLaurie, Reg Reg mr Kristine Ferraro, RN RN Emmy Amador RN RN Negra Hernandez MD MD gb1
--- NOTE | 2024-07-22 14:19 | EDPHYS ---
Physician Documentation [facility] Name: Carmel Gleason Age: 43 yrs Sex: Female : 1980 Arrival Date: 07/22/2024 Time: 12:24 Bed IW1 Private MD: ED Physician Negra Hernandez HPI: 07/22 13:32 This 43 yrs old Black Female presents to ER via Ambulatory with complaints of Sore gb1 Throat, Cough. 13:32 Ms. Gleason is a 43-year-old -[place] female with a heavy smoking history that 1 comes for persistent cough and sore throat which is improved since arrival. She denies fever chills or nausea vomiting or diarrhea. She has history of atrial fibrillation and hypertension.. Historical: - Allergies: 13:15 No Known Allergies; iw - PMHx: 13:15 Untreated STD; Atrial fibrillation; iw Exam: 13:32 Constitutional: This is a well developed, well nourished patient who is awake, alert, gb1 and in no acute distress. Head/Face: Normocephalic, atraumatic. Eyes: Pupils equal round and reactive to light, extra-ocular motions intact. Lids and lashes normal. Conjunctiva and sclera are non-icteric and not injected. Cornea within normal limits. Periorbital areas with no swelling, redness, or edema. ENT: Nares patent. No nasal discharge, no septal abnormalities noted. Tympanic membranes are normal and external auditory canals are clear. Oropharynx with no redness, swelling, or masses, exudates, or evidence of obstruction, uvula midline. Mucous membranes moist. Neck: Trachea midline, no thyromegaly or masses palpated, and no cervical lymphadenopathy. Supple, full range of motion without nuchal rigidity, or vertebral point tenderness. No Meningismus. Chest/axilla: Normal chest wall appearance and motion. Nontender with no deformity. No lesions are appreciated. Cardiovascular: Regular rate and rhythm with a normal S1 and S2. No gallops, murmurs, or rubs. Normal PMI, no JVD. No pulse deficits. Respiratory: Lungs have equal breath sounds bilaterally, clear to auscultation and percussion. No rales, rhonchi or wheezes noted. No increased work of breathing, no retractions or nasal flaring. Abdomen/GI: Soft, non-tender, with normal bowel sounds. No distension or tympany. No guarding or rebound. No evidence of tenderness throughout. Back: No spinal tenderness. No costovertebral tenderness. Full range of motion. Vital Signs: 13:15 BP 146 / 84; Pulse 81; Resp 16; Pulse Ox 100% on R/A; iw MDM: 13:19 Medical Screening Exam initiated gb1 13:32 Data reviewed: vital signs, nurses notes, radiologic studies. gb1 14:21 ED course: 43-year-old female with history of tobacco use here with cough. Is afebrile gb1 and her chest x-ray shows no signs of focal pneumonia. I doubt that she has COVID or flu. I will discharge her with a prescription for steroids for 5 days as well as an albuterol inhaler for symptoms. We spent 10 minutes talking about smoking cessation. Patient is compliant with clinic after discharge and given explicit return precautions which was also complaining flagging him today.. 07/22 13:20 Order name: CXR XRAY; Complete Time: 14:18 gb1 Administered Medications: No medications were administered Disposition Summary: 07/22/24 14:19 Discharge Ordered Notes: Location: Home gb1 Problem: chronic gb1 Symptoms: have improved gb1 Condition: Stable gb1 Diagnosis - Acute bronchitis, unspecified gb1 Followup: gb1 - With: Private Physician - When: - Reason: Recheck today's complaints Discharge Instructions: - Discharge Summary Sheet gb1 - Acute Bronchitis, Adult gb1 Forms: - Work release form hb - Medication Reconciliation Form gb1 - Antibiotic Education gb1 - Prescription Opioid Use gb1 - Patient Portal Instructions gb1 - Leadership Thank You Letter gb1 Prescriptions: - albuterol sulfate 90 mcg/actuation Inhalation HFA Aerosol Inhaler - inhale 3 puff INHALATION route every 20 minutes for up to 3 doses; 1 gb1 Applicator; Refills: 0, Product Selection Permitted - Prednisone 20 mg Oral Tablet - take 2 tablets ORAL route once daily for 5 days; 10 tablet; Refills: 0, Product gb1 Selection Permitted Signatures: Dispatcher [employer] EDKristine Britton RN RN iw Blocker, Gina, MD MD gb1 Corrections: (The following items were deleted from the chart) 13:20 13:20 Chest Single View+[email or web address] ordered. EDMS EDMS
[2024-07-22 16:07] VITALS: BP 146/84; O2SAT 100
== END 2024-07-22 16:03 | disposition home or self-care (01) ==
LOC: ER 12:24
DX: J20.9 Acute bronchitis, unspecified (principal)
CPT/HCPCS: 71045; 99283